=== PATIENT | female | born 1950 | race Caucasian/White ===

== ENCOUNTER 2017-08-24 18:17 | Inpatient (IN) | payer MEDICARE, OTHER ==
[~2017-08-24] VITALS: Ht 162.6 cm; Wt 83.7 kg
[2017-08-24 18:29] VITALS: BP 181/78; PULSE 100; RESP 26; TEMP 99.3; O2SAT 90
--- NOTE | 2017-08-24 19:00 | PD ---
HPI Chief Complaint: General Weakness Time Seen by Provider: 18:59 Travel History International Travel<30 days: No Contact w/Intl Traveler<30days: No Traveled to known affect area: No History of Present Illness HPI 67-year-old female came to the emergency room brought by her two sons with history of altered mental status. I spoke with the son. She has had slowly declining mental condition for past 2 months. She has a home healthcare nurse who comes to see her 3 times a week. One week ago her condition really worsened and last Saturday when the nurse came and saw her she called 911 and patient was taken to [facility]. As per the son she was there up until this morning and was discharged this morning. She had blood test, CAT scan and MRIs done. As per them they were not told the reason of her condition. Her sons are very concerned and frustrated since her confusion continues. After taking her home they realized that she was not fit to stay at home and they needed more answer and hence brought her here. Patient was saturating 90% on room air. She is not on oxygen at home. Patient is unable to give any meaningful history. She looks confused and has been fidgety trying to get out of the bed but unsteady. As per the sons all this has been more recent since past one week. Patient is on methadone for chronic pain for past 10 years as per them. She is also on Xanax, trazodone and gabapentin. No new medications as per them. PFSH Past Medical History Narrative Medical List of her past medical, surgical, social and family history is reviewed from the nursing note Anxiety: Yes High Cholesterol: Yes COPD: Yes Hepatitis: Yes (hep C ) Hypertension: Yes Menopausal: Yes Social History Alcohol Use: No Tobacco Use: Yes (5 ciggaretts a day plus vapor ) Substance Use: No Allergies-Medications (Allergen,Severity, Reaction): Coded Allergies: No Known Allergies (Verified Allergy, Unknown, 06/27/04) Comments No known drug allergies. Reported Meds & Prescriptions Reported Meds & Active Scripts Active Reported Gabapentin 300 Mg Cap 300 Mg PO TID Escitalopram (Escitalopram Oxalate) 20 Mg Tab 20 Mg PO DAILY Lisinopril-Hctz 20-12.5 Mg Tab 1 Tab PO DAILY Lorazepam 1 Mg Tab 1 Mg PO Q8H PRN Trazodone (Trazodone HCl) 150 Mg Tablet 150 Mg PO HS Narrative Medication List of her home medications reviewed from the nursing note. Review of Systems ROS Limitations: Altered Mental Status Except as stated in HPI: all other systems reviewed are Neg Physical Exam Narrative GENERAL: Confused, unsteady gait, tremulous, moderate distress, slurred speech SKIN: Focused skin assessment warm/dry. HEAD: Atraumatic. Normocephalic. EYES: Pupils equal and round. No scleral icterus. No injection or drainage. ENT: No nasal bleeding or discharge. Mucous membranes pink and moist. NECK: Trachea midline. No JVD. CARDIOVASCULAR: Regular rate and rhythm. No murmur appreciated. RESPIRATORY: No accessory muscle use. Clear to auscultation. Breath sounds equal bilaterally. GASTROINTESTINAL: Abdomen soft, non-tender, nondistended. Hepatic and splenic margins not palpable. MUSCULOSKELETAL: No obvious deformities. No clubbing. No cyanosis. No edema. NEUROLOGICAL: GCS of 14. No obvious cranial nerve deficits. Unsteady gait and tremulous. Slurred speech. PSYCHIATRIC: Appropriate mood and affect; insight and judgment normal. Data Data Last Documented VS Vital Signs Date Time Temp Pulse Resp B/P (MAP) Pulse Ox O2 Delivery O2 Flow Rate FiO2 08/24/17 20:36 79 16 117/66 (83) 98 Nasal Cannula 2.00 08/24/17 18:29 99.3 Orders Orders Electrocardiogram (08/24/17 19:05) Ammonia (08/24/17 19:05) Complete Blood Count With Diff (08/24/17 19:05) Comprehensive Metabolic Panel (08/24/17 19:05) Creatine Kinase (Cpk) (08/24/17 19:05) Prothrombin Time / Inr (Pt) (08/24/17 19:05) Troponin I (08/24/17 19:05) Thyroid Stimulating Hormone (08/24/17 19:05) Urinalysis - C+S If Indicated (08/24/17 19:05) Lactic Acid Sepsis Protocol (08/24/17 19:05) Blood Culture (08/24/17 19:05) Chest, Single Ap (08/24/17 19:05) Ct Brain W/O Iv Contrast(Rout) (08/24/17 19:05) Blood Glucose (08/24/17 19:05) Ecg Monitoring (08/24/17 19:05) Iv Access Insert/Monitor (08/24/17 19:05) Oximetry (08/24/17 19:05) Sodium Chloride 0.9% Flush (Ns Flush) (08/24/17 19:15) Sodium Chlor 0.9% 1000 Ml Inj (Ns 1000 M (08/24/17 19:05) Drug Screen, Random Urine (08/24/17 19:05) Alcohol (Ethanol) (08/24/17 19:05) Tylenol (Acetaminophen) (08/24/17 19:05) Salicylates (Aspirin) (08/24/17 19:05) ^ Straight Catheter (08/24/17 19:45) Sodium Chlor 0.9% 1000 Ml Inj (Ns 1000 M (08/24/17 20:00) Piperacil-Tazo 4.5 Gm Premix (Zosyn 4.5 (08/24/17 20:00) Vancomycin Inj (Vancomycin Inj) (08/24/17 20:00) CKMB (08/24/17 19:15) CKMB% (08/24/17 19:15) Admit Order (Ed Use Only) (08/24/17 20:34) Labs Laboratory Tests Test 08/24/17 19:15 White Blood Count 20.1 TH/MM3 Red Blood Count 4.59 MIL/MM3 Hemoglobin 13.1 GM/DL Hematocrit 39.0 % Mean Corpuscular Volume 84.9 FL Mean Corpuscular Hemoglobin 28.6 PG Mean Corpuscular Hemoglobin Concent 33.6 % Red Cell Distribution Width 13.4 % Platelet Count 313 TH/MM3 Mean Platelet Volume 8.4 FL Neutrophils (%) (Auto) 73.6 % Lymphocytes (%) (Auto) 18.8 % Monocytes (%) (Auto) 7.2 % Eosinophils (%) (Auto) 0.2 % Basophils (%) (Auto) 0.2 % Neutrophils # (Auto) 14.8 TH/MM3 Lymphocytes # (Auto) 3.8 TH/MM3 Monocytes # (Auto) 1.5 TH/MM3 Eosinophils # (Auto) 0.0 TH/MM3 Basophils # (Auto) 0.0 TH/MM3 CBC Comment DIFF FINAL Differential Comment Prothrombin Time 10.6 SEC Prothromb Time International Ratio 1.0 RATIO Urine Color LIGHT-YELLOW Urine Turbidity CLEAR Urine pH 5.5 Urine Specific [place] 1.008 Urine Protein NEG mg/dL Urine Glucose (UA) NEG mg/dL Urine Ketones NEG mg/dL Urine Occult Blood NEG Urine Nitrite NEG Urine Bilirubin NEG Urine Urobilinogen LESS THAN 2.0 MG/DL Urine Leukocyte Esterase TRACE Urine RBC LESS THAN 1 /hpf Urine WBC 1 /hpf Urine Squamous Epithelial Cells 1 /hpf Urine Mucus FEW /lpf Microscopic Urinalysis Comment CATH-CULT NOT IND Blood Urea Nitrogen 24 MG/DL Creatinine 1.38 MG/DL Random Glucose 81 MG/DL Total Protein 7.4 GM/DL Albumin 4.0 GM/DL Calcium Level 9.4 MG/DL Alkaline Phosphatase 63 U/L Aspartate Amino Transf (AST/SGOT) 65 U/L Alanine Aminotransferase (ALT/SGPT) 35 U/L Total Bilirubin 0.5 MG/DL Sodium Level 129 MEQ/L Potassium Level 3.9 MEQ/L Chloride Level 93 MEQ/L Carbon Dioxide Level 25.4 MEQ/L Anion Gap 11 MEQ/L Estimat Glomerular Filtration Rate 38 ML/MIN Lactic Acid Level 3.1 mmol/L Ammonia 15 MCMOL/L Total Creatine Kinase 1010 U/L Creatine Kinase MB 11.7 NG/ML Creatine Kinase MB % 1.2 % Troponin I LESS THAN 0.02 NG/ML Thyroid Stimulating Hormone 3rd Gen 1.240 uIU/ML Salicylates Level 3.0 MG/DL Urine Opiates Screen NEG Acetaminophen Level LESS THAN 2.0 MCG/ML Urine Barbiturates Screen NEG Urine Amphetamines Screen NEG Urine Benzodiazepines Screen NEG Urine Cocaine Screen NEG Urine Cannabinoids Screen NEG Ethyl Alcohol Level LESS THAN 3 MG/DL MDM Medical Decision Making Medical Screen Exam Complete: Yes Emergency Medical Condition: Yes Medical Record Reviewed: Yes Interpretation(s) Twelve-lead EKG was reviewed by me. Normal sinus rhythm, normal axis, nonspecific ST-T wave changes. Heart rate of 83 bpm. Differential Diagnosis Medication induced encephalopathy, sepsis, UTI, pneumonia, electrolyte abnormality, dehydration Narrative Course 6 PM based on the blood test results so far patient seems to be septic. She has elevated white blood cell count and lactic acid. I've given her IV fluid bolus and IV antibiotic as per sepsis protocol. Awaiting for her CAT scan of the head to be done and resulted. Patient will require admission. Critical Care Narrative Aggregate critical care time was 30 minutes. Time to perform other separately billable procedures was not included in the critical care time. My time did not include minutes spent treating any other patients simultaneously or on activities that did not directly contribute to the patient's treatment. The services I provided to this patient were to treat and/or prevent clinically significant deterioration that could result in: Sepsis, sepsis protocol, altered mental status I provided critical care services requiring my management, as noted below: Chart data review, documentation time, medication orders and management, vital sign assessments/reviewing monitor data, ordering and reviewing lab tests, ordering and interpreting/reviewing x-rays and diagnostic studies, care of the patient and discussion of the patient with the admitting physicians. Procedures EKG Prior to Arrival: No Sepsis Criteria SIRS Criteria (2 or more): RR > 20 or PaCO2 < 32, WBC > 80429, < 4000 or > 10 % bands Severe Sepsis (+one): Lactate >2 Diagnosis Primary Impression: Sepsis Qualified Codes: A41.9 - Sepsis, unspecified organism Additional Impressions: Hypoxia Altered mental status Qualified Codes: R41.0 - Disorientation, unspecified Rhabdomyolysis Qualified Codes: M62.82 - Rhabdomyolysis Renal insufficiency Admitting Information Admitting Physician Requests: Denisa Solis MD Aug 24, 2017 19:00
[2017-08-24 19:02] VITALS: PULSE 89; RESP 16; O2SAT 99
[2017-08-24] MEDS ORDERED: SODIUM CHLOR 0.9% 1000 ML INJ 1,000 ML IV SCH (19:05)
[2017-08-24] MEDS ORDERED: SODIUM CHLORIDE 0.9% FLUSH 10 ML FLUSH IV FLUSH PRN ×2 (19:15→20:45)
[2017-08-24 19:23] VITALS: RESP 16; O2SAT 100
[2017-08-24] MEDS ORDERED: LORA1TAB12 PO (19:26)
[2017-08-24] MEDS ORDERED: METH10TA PO (19:26)
[2017-08-24] MEDS ORDERED: LISI20TA PO (19:26)
[2017-08-24] MEDS ORDERED: ESCI20TA PO (19:26)
[2017-08-24] MEDS ORDERED: GABA300C5 PO (19:26)
[2017-08-24] MEDS ORDERED: TRAZ1TAB14 PO (19:26)
[2017-08-24 19:35] LABS: AUTOMATED NEUTROPHIL # 14.8 TH/MM3 (1.8-7.7); BASOPHIL % 0.2 % (0.0-2.0); EOSINOPHIL % 0.2 % (0.0-4.0); HEMOGLOBIN 13.1 GM/DL (11.6-15.3); LYMPH % 18.8 % (9.0-44.0); LYMPHOCYTE # 3.8 TH/MM3 (1.0-4.8); MEAN CELL VOLUME 84.9 FL (80.0-100.0); MEAN CORPUSCULAR HEMOGLOBIN 28.6 PG (27.0-34.0); MEAN CORPUSCULAR HGB CONC 33.6 % (32.0-36.0); MEAN PLATELET VOLUME 8.4 FL (7.0-11.0); MONO % 7.2 % (0.0-8.0); MONOCYTE # 1.5 TH/MM3 (0-0.9); NEUT % 73.6 % (16.0-70.0); PLATELET COUNT 313 TH/MM3 (150-450); RED BLOOD COUNT 4.59 MIL/MM3 (4.00-5.30); RED CELL DISTRIBUTION WIDTH 13.4 % (11.6-17.2); WHITE BLOOD COUNT 20.1 TH/MM3 (4.0-11.0)
[2017-08-24 19:46] LABS: BILIRUBIN, URINE NEG (NEG); BLOOD, URINE NEG (NEG); GLUCOSE,URINE NEG (NEG); KETONE, URINE NEG (NEG); MUCUS URINE FEW /lpf (OCC); NITRITE,URINE NEG (NEG); PH, URINE 5.5 (5.0-8.5); SQUAMOUS EPITHELIAL CELL URINE 1 /hpf (0-5); URINE COLOR LIGHT-YELLOW (YELLW/STRAW); URINE LEUKOCYTE ESTERASE TRACE (NEG)
--- NOTE | 2017-08-24 19:46 | RADRPT ---
EXAM DATE/TIME: 08/24/2017 19:23 [facility] COMPARISON: No previous studies available for comparison. INDICATIONS : Shortness of breath. MEDICAL HISTORY : Hypertension. Chronic obstructive pulmonary disease. Hepatitis C. SURGICAL HISTORY : None. ENCOUNTER: Initial ACUITY: 1 day PAIN SCORE: 0/10 LOCATION: Bilateral chest FINDINGS: A single view of the chest demonstrates the lungs to be symmetrically aerated without evidence of mas s, infiltrate or effusion. The cardiomediastinal contours are unremarkable. Metallic posterior hard dhaliwal in the cervical spine. Moderate curvature of the thoracic spine convex towards the left.. CONCLUSION: The lungs are clear. Sreekanth Blanca MD on August 24, 2017 at 19:43 Board Certified Radiologist. This report was verified electronically.
[2017-08-24 19:50] LABS: LACTIC ACID SEPSIS PROTOCOL 3.1 mmol/L (0.4-2.0)
[2017-08-24 19:53] LABS: ALT (GPT) 35 U/L (10-53); AST (GOT) 65 U/L (15-37); BICARBONATE 25.4 MEQ/L (21.0-32.0); BLOOD UREA NITROGEN 24 MG/DL (7-18); CALCIUM 9.4 MG/DL (8.5-10.1); CHLORIDE 93 MEQ/L (98-107); CREATININE 1.38 MG/DL (0.50-1.00); GLOMERULAR FILTRATION RATE 38 ML/MIN (>89); GLUCOSE,RANDOM 81 MG/DL (74-106); SODIUM (NA) 129 MEQ/L (136-145)
[2017-08-24 19:55] LABS: PROTHROMBIN TIME - PATIENT 10.6 SEC (9.8-11.6)
[2017-08-24] MEDS ORDERED: PIPERACIL-TAZO 4.5 GM PREMIX 100 ML IV ONE (20:00)
[2017-08-24] MEDS ORDERED: VANCOMYCIN INJ 1,000 MG in SODIUM CHLOR 0.9% 250 ML INJ 250 ML IV ONE (20:00)
[2017-08-24] MEDS ORDERED: SODIUM CHLOR 0.9% 1000 ML INJ 1,000 ML IV ONE (20:00)
[2017-08-24 20:08] LABS: ACETAMINOPHEN LESS THAN 2.0 MCG/ML (10.0-30.0); ALKALINE PHOSPHATASE 63 U/L (45-117); TOTAL BILIRUBIN ADULT 0.5 MG/DL (0.2-1.0); TOTAL PROTEIN 7.4 GM/DL (6.4-8.2); TROPONIN I LESS THAN 0.02 NG/ML (0.02-0.05)
[2017-08-24 20:36] VITALS: BP 117/66; PULSE 79; RESP 16; O2SAT 98
--- NOTE | 2017-08-24 20:44 | RADRPT ---
EXAM DATE/TIME: 08/24/2017 20:04 [facility] COMPARISON: No previous studies available for comparison. INDICATIONS : Altered mental status. RADIATION DOSE: 37.20 CTDIvol (mGy) MEDICAL HISTORY : Hypertension. Hepatitis C. SURGICAL HISTORY : None. ENCOUNTER: Initial ACUITY: 1 day PAIN SCALE: 0/10 LOCATION: cranial TECHNIQUE: Multiple contiguous axial images were obtained of the head. Using automated exposure control and adj ustment of the mA and/or kV according to patient size, radiation dose was kept as low as reasonably a chievable to obtain optimal diagnostic quality images. DICOM format image data is available electro nically for review and comparison. FINDINGS: The patient's head is canted in the gantry creating asymmetries. CEREBRUM: The ventricles are normal for age. No evidence of midline shift, mass lesion, hemorrhage or acute in farction. No extra-axial fluid collections are seen. POSTERIOR FOSSA: The cerebellum and brainstem are intact. The 4th ventricle is midline. The cerebellopontine angle i s unremarkable. EXTRACRANIAL: The visualized portion of the orbits is intact. SKULL: The calvaria is intact. No evidence of skull fracture. CONCLUSION: No acute findings in the brain. Sreekanth Blanca MD on August 24, 2017 at 20:41 Board Certified Radiologist. This report was verified electronically.
[2017-08-24] MEDS ORDERED: ACETAMINOPHEN/HYDROcodone 325 MG/5 MG TAB PO PRN (20:45)
[2017-08-24] MEDS ORDERED: LACTULOSE SYRUP 20 GM/30 ML CUP PO PRN (20:45)
[2017-08-24] MEDS ORDERED: SENNOSIDES 8.6 MG TAB PO PRN (20:45)
[2017-08-24] MEDS ORDERED: BISACODYL 10 MG SUPP RECTAL PRN (20:45)
[2017-08-24] MEDS ORDERED: ACETAMINOPHEN 325 MG TAB PO PRN (20:45)
[2017-08-24] MEDS ORDERED: MAGNESIUM HYDROXIDE SUSP 30 ML CUP PO PRN (20:45)
[2017-08-24] MEDS ORDERED: Vancomycin Consult Pharmacy 1 EA OTHER SCH (20:45)
[2017-08-24] MEDS ORDERED: VANCOMYCIN 1 GM/200 ML PREMIX IV ONE (21:00)
[2017-08-24] MEDS: DOCUSATE SODIUM 50 MG/SENNA 8.6 MG TAB PO SCH (21:00)
[2017-08-24] MEDS: SODIUM CHLOR 0.9% 1000 ML INJ 1,000 ML IV SCH (21:00)
[2017-08-24 22:00] VITALS: BP 167/77; PULSE 87; RESP 18; TEMP 98.2; O2SAT 97
[2017-08-24] MEDS: ACETAMINOPHEN/HYDROcodone 325 MG/10 MG TAB PO PRN (22:28)
[2017-08-24] MEDS ORDERED: LORazepam 2 MG/ML VIAL IV PUSH ONE (22:30)
--- NOTE | 2017-08-24 23:27 | HHI.HP ---
[facility] Service [facility] Primary Care Physician Cade Bianchi D.O. Admission Diagnosis sepsis, rhabdomyolysis, altered mental status, hypoxia Diagnoses: (1) Altered mental status (2) Sepsis (3) Hypoxia (4) Rhabdomyolysis (5) Renal insufficiency Chief Complaint: Confusion Travel History International Travel<30 Days: No Contact w/Intl Traveler <30 Da: No Traveled to Known Affected Are: No History of Present Illness Ms. Dye is a 67 y/o female with a history of chronic pain on methadone , hypercholesterolemia, hypertension, COPD, and anxiety who was brought to the ED by her sons on 08/24/17 for evaluation of confusion/altered mental status. The patient has had declining mental status for 2 months. The patient was taken to [facility] on 08/21/17 after a home health nurse was visiting her and found her to be very confused. The patient was discharged 08/24/17 in the morning after and she reportedly had CT scans and MRIs done. The patient's sons were not aware of the cause of her condition upon her d/c from the hospital on 08/24/17. They brought her to [facility] for further evaluation. On arrival, her oxygen saturation was 90% on room air though CXR showed clear lungs; UA is not c/w UTI; head CT showed no acute pathology. Sodium is low at 129, BUN elevated at 24, creatinine elevated at 1.38, and eGFR is decreased to 38. CK is 1010, lactic acid is 3.1, AST elevated at 65 with normal ALT and ammonia level - Toxicology is negative. WBC elevated at 20.1 with neutrophilia. Temperature on admission is 99.3; pulse 100; respiratory rate 26 ; and bp 181/78. The patient was admitted for sepsis of undetermined etiology and encephalopathy of uncertain etiology. The patient is seen in her hospital room. She is completely confused. She cannot tell me where she is or why she is here; she is unable to provide any meaningful history and history is obtained from the EMR as a result. She denies pain but throws her legs over the side rails multiple times to try to get out of the bed; she cannot be reoriented and redirected. She is a high fall risk and requires restraints to prevent harm. Review of Systems ROS Limitations: Altered Mental Status (patient unable to provide any meaningful history and doesn't answer ROS ?s) Past Family Social History Past Medical History Chronic pain Hyperlipidemia Hypertension COPD Anxiety Hepatitis C Tobacco Abuse . Past Surgical History Neck and back surgeries . Reported Medications Reported Meds & Active Scripts Active Reported Gabapentin 300 Mg Cap 300 Mg PO TID Escitalopram (Escitalopram Oxalate) 20 Mg Tab 20 Mg PO DAILY Lisinopril-Hctz 20-12.5 Mg Tab 1 Tab PO DAILY Lorazepam 1 Mg Tab 1 Mg PO Q8H PRN Methadone (Methadone HCl) 10 Mg Tab 10 Mg PO DAILY Trazodone (Trazodone HCl) 150 Mg Tablet 150 Mg PO HS . Allergies: Coded Allergies: No Known Allergies (Verified Allergy, Unknown, 06/27/04) Family History unable to obtain . Social History Tobacco: admits to smoking, cannot quantify Alcohol: denies Illicit Drugs: denies . Physical Exam Vital Signs Vital Signs Date Time Temp Pulse Resp B/P (MAP) Pulse Ox O2 Delivery O2 Flow Rate FiO2 08/24/17 21:52 08/24/17 20:36 79 16 117/66 (83) 98 Nasal Cannula 2.00 08/24/17 19:23 16 100 Nasal Cannula 2.00 08/24/17 19:02 89 16 99 Nasal Cannula 2.00 08/24/17 18:29 99.3 100 26 181/78 (112) 90 Physical Exam GENERAL: This is a confused, agitated patient trying to get out of bed despite redirection. SKIN: No rashes. Cool and dry. HEAD: Atraumatic. Normocephalic. EYES: No scleral icterus. No injection or drainage. ENT: Nose without bleeding, purulent drainage. NECK: Trachea midline. No JVD. CARDIOVASCULAR: Regular rate and rhythm without murmurs, gallops, or rubs. RESPIRATORY: Clear to auscultation. Breath sounds equal bilaterally. No wheezes , rales, or rhonchi. GASTROINTESTINAL: Abdomen soft, non-tender, nondistended. No guarding. GENITOURINARY: josé catheter draining clear yellow urine. MUSCULOSKELETAL: Extremities without clubbing, cyanosis, or edema. No calf tenderness. NEUROLOGICAL: Confused; agitated; does not follow commands. . Laboratory Laboratory Tests Test 08/24/17 19:15 White Blood Count 20.1 Red Blood Count 4.59 Hemoglobin 13.1 Hematocrit 39.0 Mean Corpuscular Volume 84.9 Mean Corpuscular Hemoglobin 28.6 Mean Corpuscular Hemoglobin Concent 33.6 Red Cell Distribution Width 13.4 Platelet Count 313 Mean Platelet Volume 8.4 Neutrophils (%) (Auto) 73.6 Lymphocytes (%) (Auto) 18.8 Monocytes (%) (Auto) 7.2 Eosinophils (%) (Auto) 0.2 Basophils (%) (Auto) 0.2 Neutrophils # (Auto) 14.8 Lymphocytes # (Auto) 3.8 Monocytes # (Auto) 1.5 Eosinophils # (Auto) 0.0 Basophils # (Auto) 0.0 CBC Comment DIFF FINAL Differential Comment Prothrombin Time 10.6 Prothromb Time International Ratio 1.0 Urine Color LIGHT-YELLOW Urine Turbidity CLEAR Urine pH 5.5 Urine Specific [place] 1.008 Urine Protein NEG Urine Glucose (UA) NEG Urine Ketones NEG Urine Occult Blood NEG Urine Nitrite NEG Urine Bilirubin NEG Urine Urobilinogen LESS THAN 2.0 Urine Leukocyte Esterase TRACE Urine RBC LESS THAN 1 Urine WBC 1 Urine Squamous Epithelial Cells 1 Urine Mucus FEW Microscopic Urinalysis Comment CATH-CULT NOT IND Blood Urea Nitrogen 24 Creatinine 1.38 Random Glucose 81 Total Protein 7.4 Albumin 4.0 Calcium Level 9.4 Alkaline Phosphatase 63 Aspartate Amino Transf (AST/SGOT) 65 Alanine Aminotransferase (ALT/SGPT) 35 Total Bilirubin 0.5 Sodium Level 129 Potassium Level 3.9 Chloride Level 93 Carbon Dioxide Level 25.4 Anion Gap 11 Estimat Glomerular Filtration Rate 38 Lactic Acid Level 3.1 Ammonia 15 Total Creatine Kinase 1010 Creatine Kinase MB 11.7 Creatine Kinase MB % 1.2 Troponin I LESS THAN 0.02 Thyroid Stimulating Hormone 3rd Gen 1.240 Salicylates Level 3.0 Urine Opiates Screen NEG Acetaminophen Level LESS THAN 2.0 Urine Barbiturates Screen NEG Urine Amphetamines Screen NEG Urine Benzodiazepines Screen NEG Urine Cocaine Screen NEG Urine Cannabinoids Screen NEG Ethyl Alcohol Level LESS THAN 3 Date/Time Source Procedure Growth Status 08/24/17 19:15 Blood Peripheral Aerobic Blood Culture Pending Received 08/24/17 19:15 Blood Peripheral Anaerobic Blood Culture Pending Received Result Diagram: 08/24/17191408/24/171914 Imaging Last Impressions Head CT 08/24/171904 Signed Impressions: Service Date/Time: Thursday, August 24, 2017 20:04 - CONCLUSION: No acute findings in the brain. Sreekanth Blanca MD Chest X-Ray 08/24/171904 Signed Impressions: Service Date/Time: Thursday, August 24, 2017 19:23 - CONCLUSION: The lungs are clear. Sreekanth Blanca MD Caprini VTE Risk Assessment Caprini VTE Risk Assessment: Mod/High Risk (score >= 2) Caprini Risk Assessment Model Point Value = 1 Point Value = 2 Point Value = 3 Point Value = 5 Age 41-60 Minor surgery BMI > 25 kg/m2 Swollen legs Varicose veins or History of unexplained or recurrent spontaneous Oral contraceptives or hormone replacement Sepsis (< 1 month) Serious lung disease, including pneumonia (< 1 month) Abnormal pulmonary function Acute myocardial infarction Congestive heart failure (< 1 month) History of inflammatory bowel disease Medical patient at bed rest Age 61-74 Arthroscopic surgery Major open surgery (> 45 min) Laparoscopic surgery (> 45 min) Malignancy Confined to bed (> 72 hours) Immobilizing plaster cast Central venous access Age >= 75 History of VTE Family history of VTE Factor V Leiden Prothrombin [id number] Lupus anticoagulant Anticardiolipin antibodies Elevated serum homocysteine Heparin-induced thrombocytopenia Other congenital or acquired thrombophilia Stroke (< 1 month) Elective arthroplasty Hip, pelvis, or leg fracture Acute spinal cord injury (< 1 month) Prophylaxis Regimen Total Risk Factor Score Risk Level Prophylaxis Regimen 0-1 Low Early ambulation 2 Moderate Order ONE of the following: *Sequential Compression Device (SCD) *Heparin 5000 units SQ BID 3-4 Higher Order ONE of the following medications: *Heparin 5000 units SQ TID *Enoxaparin/Lovenox 40 mg SQ daily (WT < 150 kg, CrCl > 30 mL/min) *Enoxaparin/Lovenox 30 mg SQ daily (WT < 150 kg, CrCl > 10-29 mL/min) *Enoxaparin/Lovenox 30 mg SQ BID (WT < 150 kg, CrCl > 30 mL/min) AND/OR *Sequential Compression Device (SCD) 5 or more Highest Order ONE of the following medications: *Heparin 5000 units SQ TID (Preferred with Epidurals) *Enoxaparin/Lovenox 40 mg SQ daily (WT < 150 kg, CrCl > 30 mL/min) *Enoxaparin/Lovenox 30 mg SQ daily (WT < 150 kg, CrCl > 10-29 mL/min) *Enoxaparin/Lovenox 30 mg SQ BID (WT < 150 kg, CrCl > 30 mL/min) AND *Sequential Compression Device (SCD) Assessment and Plan Problem List: (1) Altered mental status ICD Code: R41.82 - Altered mental status, unspecified Status: Acute (2) Sepsis ICD Code: A41.9 - Sepsis, unspecified organism Status: Acute (3) Hypoxia ICD Code: R09.02 - Hypoxemia Status: Acute (4) Rhabdomyolysis ICD Code: M62.82 - Rhabdomyolysis Status: Acute (5) Renal insufficiency ICD Code: N28.9 - Disorder of kidney and ureter, unspecified Status: Acute Assessment and Plan Ms. Dye is a 67 y/o female with a history of chronic pain on methadone , hypercholesterolemia, hypertension, COPD, and anxiety who was brought to the ED by her sons on 08/24/17 for evaluation of confusion/altered mental status. The patient has had declining mental status for 2 months. The patient was taken to [facility] on 08/21/17 after a home health nurse was visiting her and found her to be very confused. The patient was discharged 08/24/17 in the morning after and she reportedly had CT scans and MRIs done. The patient's sons were not aware of the cause of her condition upon her d/c from the hospital on 08/24/17. They brought her to [facility] for further evaluation. Altered mental status - head CT showed no acute pathology; ammonia level normal; toxicology negative - High fall risk interventions - Restraints, soft wrist/ankle to prevent injury - Obtain records from [facility] - discussed with nursing staff - Patient's sons indicated that she takes methadone and Xanax (lorazepam listed on med rec) to ER doctor but toxicology is negative - will hold methadone and Lorazepam - I have some concern regarding polypharmacy Sepsis - Lactic Acid 3.1, tachycardia - 100 bpm on admission, hypoxia on admission 90% oxygen saturation - source unknown - Lactic acid sepsis protocol ordered - WBC elevated at 20.1 with neutrophilia - repeat CBC in a.m. and follow results - CXR showed clear lungs; UA is not c/w UTI - await blood culture results - Antibiotics: Vancomycin/Cefepime IV Hypoxia - supplemental oxygen titrated to maintain oxygen saturation > 92% - Duonebs q4h PRN sob/wheezing Rhabdomyolysis, mild - CK 1010 - NS at 100 cc/hr - repeat CK and follow results - increase IVF hydration if needed Renal insufficiency - no prior labs for comparison - BUN elevated at 24, creatinine elevated at 1.38, and eGFR is decreased to 38 - IVF hydration as above - recheck with BMP in a.m. and follow results - avoid nephrotoxins Hyponatremia - Na 129 on admission - NS IVF hydration as above - recheck level in a.m. and follow results Hypertension - hold home lisinopril/hctz due to renal insufficiency - Clonidine 0.1 mg p.o. q6h PRN SBP > 160 or DBP > 100 - monitor bp trends and adjust treatment accordingly DVT prophylaxis - Heparin 5000 units subq q8h Discussed Condition With RN and Dr. Lacey . Physician Certification 2 Midnight Certification Type: Admission for Inpatient Services Order for Inpatient Services The services are ordered in accordance with Medicare regulations or non- Medicare payer requirements, as applicable. In the case of services not specified as inpatient-only, they are appropriately provided as inpatient services in accordance with the 2-midnight benchmark. Estimated LOS (days): 4 days is the estimated time the patient will need to remain in the hospital, assuming treatment plan goals are met and no additional complications. Post-Hospital Plan: Not yet determined Problem Qualifiers (1) Altered mental status: Qualified Codes: R41.0 - Disorientation, unspecified (2) Sepsis: Qualified Codes: A41.9 - Sepsis, unspecified organism (3) Rhabdomyolysis: Qualified Codes: M62.82 - Rhabdomyolysis Anh Escobedo Aug 24, 2017 23:27
[2017-08-24] MEDS ORDERED: VANCOMYCIN 1,000 MG/NS 250 ML IV ONE ×2 (23:30)
[2017-08-24] MEDS: SODIUM CHLORIDE 0.9% FLUSH 10 ML FLUSH IV FLUSH SCH (23:51)
[2017-08-25] VITALS (8 sets, daily range): BP systolic 99–165; BP diastolic 63–99; PULSE 62–80; RESP 17–20; TEMP 97.2–98.7; O2SAT 95–98
--- NOTE | 2017-08-25 00:39 | EKG ---
Date Performed: 08/24/2017 Time Performed: 19:35:58 PTAGE: 67 years EKG: Sinus rhythm NORMAL ECG NO PREVIOUS TRACING DOCTOR: Cruz Hollingsworth Interpretating Date/Time 08/25/2017 00:37:07
[2017-08-25] MEDS ORDERED: RESP: ALBUTEROL 2.5 MG/IPRATROPIUM 0.5 MG NEB (PRN) NEB (01:00)
[2017-08-25] MEDS ORDERED: LORazepam 0.5 MG TAB PO PRN (01:00)
[2017-08-25] MEDS ORDERED: cloNIDine HCL 0.1 MG TAB PO PRN (01:30)
[2017-08-25 02:26] LABS: TROPONIN I LESS THAN 0.02 NG/ML (0.02-0.05)
[2017-08-25] MEDS: HEPARIN SODIUM - SQ 10,000 UNITS/ML VIAL SQ SCH ×3 (06:31→21:08)
[2017-08-25] MEDS: SODIUM CHLOR 0.9% 1000 ML INJ 1,000 ML IV SCH ×2 (07:00→14:27)
[2017-08-25] MEDS: SODIUM CHLORIDE 0.9% FLUSH 10 ML FLUSH IV FLUSH SCH ×2 (08:42→21:14)
[2017-08-25] MEDS: DOCUSATE SODIUM 50 MG/SENNA 8.6 MG TAB PO SCH ×2 (09:00→21:00)
[2017-08-25] MEDS ORDERED: CEFEPIME INJ 1,000 MG in SODIUM CHLORIDE 0.9% INJ 100 ML IV SCH (09:00)
[2017-08-25] MEDS ORDERED: METHADONE HCL 10 MG TAB PO SCH ×2 (09:00→21:00)
[2017-08-25] MEDS: GABAPENTIN 300 MG CAP PO SCH ×3 (09:15→17:21)
[2017-08-25] MEDS: ESCITALOPRAM OXALATE 20 MG TAB PO SCH (09:15)
[2017-08-25 09:57] LABS: AUTOMATED NEUTROPHIL # 9.7 TH/MM3 (1.8-7.7); BASOPHIL % 0.2 % (0.0-2.0); EOSINOPHIL # 0.1 TH/MM3 (0-0.4); EOSINOPHIL % 0.5 % (0.0-4.0); HEMATOCRIT 35.5 % (35.0-46.0); HEMOGLOBIN 11.9 GM/DL (11.6-15.3); LYMPH % 10.6 % (9.0-44.0); LYMPHOCYTE # 1.3 TH/MM3 (1.0-4.8); MEAN CORPUSCULAR HEMOGLOBIN 28.9 PG (27.0-34.0); MEAN CORPUSCULAR HGB CONC 33.6 % (32.0-36.0); MEAN PLATELET VOLUME 8.1 FL (7.0-11.0); MONO % 7.9 % (0.0-8.0); NEUT % 80.8 % (16.0-70.0); PLATELET COUNT 235 TH/MM3 (150-450); RED BLOOD COUNT 4.13 MIL/MM3 (4.00-5.30); RED CELL DISTRIBUTION WIDTH 13.6 % (11.6-17.2)
[2017-08-25 10:16] LABS: ALBUMIN 3.2 GM/DL (3.4-5.0); ALT (GPT) 29 U/L (10-53); AST (GOT) 55 U/L (15-37); BLOOD UREA NITROGEN 15 MG/DL (7-18); CALCIUM 8.2 MG/DL (8.5-10.1); CHLORIDE 107 MEQ/L (98-107); CREATININE 0.85 MG/DL (0.50-1.00); GLOMERULAR FILTRATION RATE 67 ML/MIN (>89); GLUCOSE,RANDOM 79 MG/DL (74-106); SODIUM (NA) 140 MEQ/L (136-145)
[2017-08-25 10:20] LABS: ALKALINE PHOSPHATASE 52 U/L (45-117); TOTAL BILIRUBIN ADULT 0.5 MG/DL (0.2-1.0); TROPONIN I LESS THAN 0.02 NG/ML (0.02-0.05)
[2017-08-25] MEDS: ACETAMINOPHEN/HYDROcodone 325 MG/10 MG TAB PO PRN ×2 (11:49→17:21)
--- NOTE | 2017-08-25 16:33 | HHI.PR ---
Subjective Remarks c/o generalized pain. Requesting to have her methadone restarted. Denies cp/sob. Afebrile Objective Vitals Vital Signs Date Time Temp Pulse Resp B/P (MAP) Pulse Ox O2 Delivery O2 Flow Rate FiO2 08/25/17 16:19 63 08/25/17 12:00 80 08/25/17 08:00 98.7 80 20 134/63 (86) 97 08/25/17 08:00 62 08/25/17 07:18 Nasal Cannula 2.00 08/25/17 04:00 98.2 77 17 141/65 (90) 97 08/25/17 00:00 76 08/24/17 22:00 98.2 87 18 167/77 (107) 97 08/24/17 22:00 Nasal Cannula 2.00 08/24/17 21:52 08/24/17 20:36 79 16 117/66 (83) 98 Nasal Cannula 2.00 08/24/17 19:23 16 100 Nasal Cannula 2.00 08/24/17 19:02 89 16 99 Nasal Cannula 2.00 08/24/17 18:29 99.3 100 26 181/78 (112) 90 I/O 08/24/17 08/24/17 08/24/17 08/25/17 08/25/17 08/25/17 06:59 14:59 22:59 06:59 14:59 22:59 Intake Total 2250 ml 878 ml 100 ml Output Total 1600 ml Balance 2250 ml -722 ml 100 ml Intake IV Total 2250 ml 878 ml 100 ml Output Urine Total 1600 ml # Bowel Movements 0 Result Diagram: 08/25/1793008/25/17930 Imaging Last Impressions Head CT 08/24/171904 Signed Impressions: Service Date/Time: Thursday, August 24, 2017 20:04 - CONCLUSION: No acute findings in the brain. Sreekanth Blanca MD Chest X-Ray 08/24/171904 Signed Impressions: Service Date/Time: Thursday, August 24, 2017 19:23 - CONCLUSION: The lungs are clear. Sreekanth Blanca MD Objective Remarks \GENERAL: This is a confused, agitated patient trying to get out of bed despite redirection. SKIN: No rashes. Cool and dry. HEAD: Atraumatic. Normocephalic. EYES: No scleral icterus. No injection or drainage. ENT: Nose without bleeding, purulent drainage. NECK: Trachea midline. No JVD. CARDIOVASCULAR: Regular rate and rhythm without murmurs, gallops, or rubs. RESPIRATORY: Clear to auscultation. Breath sounds equal bilaterally. No wheezes , rales, or rhonchi. GASTROINTESTINAL: Abdomen soft, non-tender, nondistended. No guarding. GENITOURINARY: josé catheter draining clear yellow urine. MUSCULOSKELETAL: Extremities without clubbing, cyanosis, or edema. No calf tenderness. NEUROLOGICAL: awake and alert, anxious; follows commands. Medications and IVs Current Medications Medications (Trade) Dose Ordered Sig/Josafat Route Start Time Stop Time Status Last Admin Pharmacy Profile Note 0 ml @ 0 mls/hr UNSCH OTHER 08/24/17 20:45 Sodium Chloride 1,000 ml @ 100 mls/hr Q10H IV 08/24/17 21:00 08/25/17 14:27 (NS Flush) 2 ml UNSCH PRN IV FLUSH 08/24/17 20:45 (NS Flush) 2 ml BID IV FLUSH 08/24/17 21:00 08/25/17 21:14 (Zofran Inj) 4 mg Q6H PRN IVP 08/24/17 20:45 (Tylenol) 650 mg Q6H PRN PO 08/24/17 20:45 ([place] 5-325 Mg) 1 tab Q4H PRN PO 08/24/17 20:45 ([place] 10-325 Mg) 1 tab Q4H PRN PO 08/24/17 20:45 08/25/17 17:21 (Elisa-Colace) 1 tab BID PO 08/24/17 21:00 (Milk Of Magnesia Liq) 30 ml Q12H PRN PO 08/24/17 20:45 (Senokot) 17.2 mg Q12H PRN PO 08/24/17 20:45 (Dulcolax Supp) 10 mg DAILY PRN RECTAL 08/24/17 20:45 (Lactulose Liq) 30 ml DAILY PRN PO 08/24/17 20:45 (Lexapro) 20 mg DAILY PO 08/25/17 09:00 08/25/17 09:15 (Neurontin) 300 mg TID PO 08/25/17 09:00 08/25/17 17:21 (Desyrel) 150 mg HS PO 08/25/17 21:00 08/25/17 21:09 (Duoneb Neb) 1 ampule Q4HR NEB PRN NEB 08/25/17 01:00 (Heparin Inj) 5,000 units Q8HR SQ 08/25/17 06:00 08/25/17 21:08 (Catapres) 0.1 mg Q6H PRN PO 08/25/17 01:30 Cefepime HCl 2000 mg/Sodium Chloride 100 ml @ 200 mls/hr Q12H IV 08/25/17 21:00 08/25/17 21:14 (Dolophine) 35 mg BID PO 08/25/17 21:00 08/25/17 21:10 (Pill Splitter) 1 ea UNSCH PRN OTHER 08/25/17 18:30 A/P Problem List: (1) Altered mental status ICD Code: R41.82 - Altered mental status, unspecified Status: Acute (2) Sepsis ICD Code: A41.9 - Sepsis, unspecified organism Status: Acute (3) Hypoxia ICD Code: R09.02 - Hypoxemia Status: Acute (4) Rhabdomyolysis ICD Code: M62.82 - Rhabdomyolysis Status: Acute (5) Renal insufficiency ICD Code: N28.9 - Disorder of kidney and ureter, unspecified Status: Acute Assessment and Plan Ms. Dye is a 67 y/o female with a history of chronic pain on methadone , hypercholesterolemia, hypertension, COPD, and anxiety who was brought to the ED by her sons on 08/24/17 for evaluation of confusion/altered mental status. The patient has had declining mental status for 2 months. The patient was taken to [facility] on 08/21/17 after a home health nurse was visiting her and found her to be very confused. The patient was discharged 08/24/17 in the morning after and she reportedly had CT scans and MRIs done. The patient's sons were not aware of the cause of her condition upon her d/c from the hospital on 08/24/17. They brought her to [facility] for further evaluation. Encephalopathy - head CT showed no acute pathology; ammonia level normal; toxicology negative - High fall risk interventions - off restraints - Obtain records from [facility] - discussed with nursing staff - Patient's sons indicated that she takes methadone and Xanax (lorazepam listed on med rec) to ER doctor but toxicology is negative - will hold methadone and Lorazepam - I have some concern regarding polypharmacy - 08/25 suspect metabolic encephalopathy secondary to sepsis. Encephalopathy has resolved, patient is awake and alert, very anxious. I will resume methadone and continue to hold Xanax. Sepsis - Lactic Acid 3.1, tachycardia - 100 bpm on admission, hypoxia on admission 90% oxygen saturation - source unknown - Lactic acid sepsis protocol ordered - WBC elevated at 20.1 with neutrophilia - repeat CBC in a.m. and follow results - CXR showed clear lungs; UA is not c/w UTI - await blood culture results - Antibiotics: Vancomycin/Cefepime IV - 08/25 sepsis clinically improving with the result elevated lactic acid, improving leukocytosis down to 12 K and improving oxygen saturation. Hypoxia - supplemental oxygen titrated to maintain oxygen saturation > 92% - Duonebs q4h PRN sob/wheezing Rhabdomyolysis, mild - CK 1010 - NS at 100 cc/hr - repeat CK and follow results - increase IVF hydration if needed - 08/25 CK trending down, continue with fluids. Continue to monitor CK. Acute kidney injury- no prior labs for comparison - BUN elevated at 24, creatinine elevated at 1.38, and eGFR is decreased to 38 - 08/25 Resolved after IV fluid administration. Suspect SUZY like secondary to prerenal azotemia. - Continue to monitor BMP Hyponatremia - Na 129 on admission - NS IVF hydration as above - 08/25 suspect hypovolemic hyponatremia. Resolved after IV fluid administration. Hypertension - hold home lisinopril/hctz due to renal insufficiency - Clonidine 0.1 mg p.o. q6h PRN SBP > 160 or DBP > 100 - monitor bp trends and adjust treatment accordingly - 08/25 BNP more stable. Continue to monitor. DVT prophylaxis - Heparin 5000 units subq q8h Discharge Planning Continue to monitor in the medical floor. Problem Qualifiers (1) Altered mental status: Qualified Codes: R41.0 - Disorientation, unspecified (2) Sepsis: Qualified Codes: A41.9 - Sepsis, unspecified organism (3) Rhabdomyolysis: Qualified Codes: M62.82 - Rhabdomyolysis Rodríguez Solano MD Aug 25, 2017 16:33
[2017-08-25] MEDS ORDERED: PILL SPLITTER OTHER PRN (18:30)
[2017-08-25] MEDS ORDERED: METHADONE HCL 10 MG/10 ML ORAL SOLUTION PO SCH (21:00)
[2017-08-25] MEDS: traZODone HCL 50 MG TAB PO SCH (21:09)
[2017-08-25] MEDS: METHADONE HCL 10 MG TAB PO SCH (21:10)
[2017-08-25] MEDS: CEFEPIME 2000 MG/NS 100 ML IV SCH ×2 (21:14)
[2017-08-26] VITALS (10 sets, daily range): BP systolic 131–146; BP diastolic 63–80; PULSE 56–86; RESP 18–20; TEMP 97.3–98.6; O2SAT 93–98
[2017-08-26] MEDS: SODIUM CHLOR 0.9% 1000 ML INJ 1,000 ML IV SCH ×4 (00:42→23:00)
[2017-08-26] MEDS: HEPARIN SODIUM - SQ 10,000 UNITS/ML VIAL SQ SCH ×3 (05:29→21:22)
[2017-08-26] MEDS: DOCUSATE SODIUM 50 MG/SENNA 8.6 MG TAB PO SCH ×2 (08:33→21:00)
[2017-08-26] MEDS: GABAPENTIN 300 MG CAP PO SCH ×3 (08:34→18:13)
[2017-08-26] MEDS: ESCITALOPRAM OXALATE 20 MG TAB PO SCH (08:37)
[2017-08-26] MEDS: CEFEPIME 2000 MG/NS 100 ML IV SCH ×4 (08:37→21:26)
[2017-08-26] MEDS: SODIUM CHLORIDE 0.9% FLUSH 10 ML FLUSH IV FLUSH SCH ×2 (08:37→21:26)
[2017-08-26] MEDS: METHADONE HCL 10 MG TAB PO SCH ×2 (08:38→21:25)
[2017-08-26] MEDS: VANCOMYCIN INJ 1,250 MG in SODIUM CHLOR 0.9% 250 ML INJ 250 ML IV SCH (13:26)
[2017-08-26] MEDS: LORazepam 1 MG TAB PO PRN ×2 (13:26→21:23)
[2017-08-26] MEDS: ONDANSETRON HCL 4 MG/2 ML VIAL IVP PRN (13:28)
--- NOTE | 2017-08-26 13:28 | HHI.PR ---
Subjective Remarks Patient is still very anxious. Awake Denies cp/sob. states feels sick - like if she is withdrawing. Objective Vitals Vital Signs Date Time Temp Pulse Resp B/P (MAP) Pulse Ox O2 Delivery O2 Flow Rate FiO2 08/26/17 04:00 58 08/26/17 04:00 97.7 77 18 131/69 (89) 97 08/26/17 00:00 97.3 58 20 131/69 (89) 98 08/26/17 00:00 59 08/26/17 00:00 Nasal Cannula 2.00 08/25/17 22:10 75 135/79 (97) 08/25/17 21:00 Nasal Cannula 2.00 08/25/17 20:00 71 08/25/17 20:00 97.2 76 18 165/99 (121) 98 08/25/17 16:19 63 08/25/17 16:00 97.2 73 20 137/64 (88) 95 I/O 08/25/17 08/25/17 08/25/17 08/26/17 08/26/17 08/26/17 07:00 15:00 23:00 07:00 15:00 23:00 Intake Total 878 ml 100 ml 460 ml 2047 ml Output Total 1600 ml 1950 ml Balance -722 ml 100 ml -1490 ml 2047 ml Intake Oral 360 ml IV Total 878 ml 100 ml 100 ml 2047 ml Output Urine Total 1600 ml 1950 ml # Bowel Movements 0 2 Result Diagram: 08/25/17 0931 08/25/17 0931 Imaging Last Impressions Head CT 08/24/171904 Signed Impressions: Service Date/Time: Thursday, August 24, 2017 20:04 - CONCLUSION: No acute findings in the brain. Sreekanth Blanca MD Chest X-Ray 08/24/171904 Signed Impressions: Service Date/Time: Thursday, August 24, 2017 19:23 - CONCLUSION: The lungs are clear. Sreekanth Blanca MD Objective Remarks GENERAL: Awake and alert, nad, anxious. SKIN: No rashes. Cool and dry. HEAD: Atraumatic. Normocephalic. EYES: No scleral icterus. No injection or drainage. ENT: Nose without bleeding, purulent drainage. NECK: Trachea midline. No JVD. CARDIOVASCULAR: Regular rate and rhythm without murmurs, gallops, or rubs. RESPIRATORY: Clear to auscultation. Breath sounds equal bilaterally. No wheezes , rales, or rhonchi. GASTROINTESTINAL: Abdomen soft, non-tender, nondistended. No guarding. GENITOURINARY: josé catheter draining clear yellow urine. MUSCULOSKELETAL: Extremities without clubbing, cyanosis, or edema. No calf tenderness. NEUROLOGICAL: awake and alert, anxious; follows commands. Medications and IVs Current Medications Medications (Trade) Dose Ordered Sig/Josafat Route Start Time Stop Time Status Last Admin Pharmacy Profile Note 0 ml @ 0 mls/hr UNSCH OTHER 08/24/17 20:45 Sodium Chloride 1,000 ml @ 100 mls/hr Q10H IV 08/24/17 21:00 08/26/17 10:29 (NS Flush) 2 ml UNSCH PRN IV FLUSH 08/24/17 20:45 (NS Flush) 2 ml BID IV FLUSH 08/24/17 21:00 08/26/17 08:37 (Zofran Inj) 4 mg Q6H PRN IVP 08/24/17 20:45 (Tylenol) 650 mg Q6H PRN PO 08/24/17 20:45 ([place] 5-325 Mg) 1 tab Q4H PRN PO 08/24/17 20:45 ([place] 10-325 Mg) 1 tab Q4H PRN PO 08/24/17 20:45 08/25/17 17:21 (Elisa-Colace) 1 tab BID PO 08/24/17 21:00 (Milk Of Magnesia Liq) 30 ml Q12H PRN PO 08/24/17 20:45 (Senokot) 17.2 mg Q12H PRN PO 08/24/17 20:45 (Dulcolax Supp) 10 mg DAILY PRN RECTAL 08/24/17 20:45 (Lactulose Liq) 30 ml DAILY PRN PO 08/24/17 20:45 (Lexapro) 20 mg DAILY PO 08/25/17 09:00 08/26/17 08:37 (Neurontin) 300 mg TID PO 08/25/17 09:00 08/25/17 17:21 (Desyrel) 150 mg HS PO 08/25/17 21:00 08/25/17 21:09 (Duoneb Neb) 1 ampule Q4HR NEB PRN NEB 08/25/17 01:00 (Heparin Inj) 5,000 units Q8HR SQ 08/25/17 06:00 08/26/17 05:29 (Catapres) 0.1 mg Q6H PRN PO 08/25/17 01:30 Cefepime HCl 2000 mg/Sodium Chloride 100 ml @ 200 mls/hr Q12H IV 08/25/17 21:00 08/26/17 08:37 (Dolophine) 35 mg BID PO 08/25/17 21:00 08/26/17 08:38 (Pill Splitter) 1 ea UNSCH PRN OTHER 08/25/17 18:30 Vancomycin HCl 1250 mg/Sodium Chloride 262.5 ml @ 250 mls/hr Q18H IV 08/26/17 12:00 Miscellaneous Information SPECIFIC LAB TO BE DRAWN:VANCO TROUGH DATE TO... ONCE ONCE .XX 08/28/17 17:45 08/28/17 17:46 (Ativan) 1 mg Q12H PRN PO 08/26/17 12:30 A/P Problem List: (1) Sepsis ICD Code: A41.9 - Sepsis, unspecified organism Status: Resolved (2) Hypoxia ICD Code: R09.02 - Hypoxemia Status: Resolved (3) Rhabdomyolysis ICD Code: M62.82 - Rhabdomyolysis Status: Acute (4) Renal insufficiency ICD Code: N28.9 - Disorder of kidney and ureter, unspecified Status: Resolved (5) Encephalopathy ICD Code: G93.40 - Encephalopathy, unspecified Status: Resolved Assessment and Plan Ms. Dye is a 67 y/o female with a history of chronic pain on methadone , hypercholesterolemia, hypertension, COPD, and anxiety who was brought to the ED by her sons on 08/24/17 for evaluation of confusion/altered mental status. The patient has had declining mental status for 2 months. The patient was taken to [facility] on 08/21/17 after a home health nurse was visiting her and found her to be very confused. The patient was discharged 08/24/17 in the morning after and she reportedly had CT scans and MRIs done. The patient's sons were not aware of the cause of her condition upon her d/c from the hospital on 08/24/17. They brought her to [facility] for further evaluation. Encephalopathy - head CT showed no acute pathology; ammonia level normal; toxicology negative - High fall risk interventions - off restraints - Obtain records from [facility] - discussed with nursing staff - Patient's sons indicated that she takes methadone and Xanax (lorazepam listed on med rec) to ER doctor but toxicology is negative - will hold methadone and Lorazepam - I have some concern regarding polypharmacy - 08/25 suspect metabolic encephalopathy secondary to sepsis. Encephalopathy has resolved, patient is awake and alert, very anxious. I will resume methadone and continue to hold Xanax. - 08/26 suspect encephalopathy could also have been induced by combination of sepsis, Methadone and Xanax. Will resume Xanax but decrease the dose to 1 mg po BID. Sepsis - Lactic Acid 3.1, tachycardia - 100 bpm on admission, hypoxia on admission 90% oxygen saturation - source unknown - Lactic acid sepsis protocol ordered - WBC elevated at 20.1 with neutrophilia - repeat CBC in a.m. and follow results - CXR showed clear lungs; UA is not c/w UTI - await blood culture results - Antibiotics: Vancomycin/Cefepime IV - 08/26 sepsis clinically improving with the result elevated lactic acid, improving leukocytosis down to 12 K and improving oxygen saturation. Hypoxia - supplemental oxygen titrated to maintain oxygen saturation > 92% - Duonebs q4h PRN sob/wheezing - 08/26 Resolved. Rhabdomyolysis, mild - CK 1010 - NS at 100 cc/hr - repeat CK and follow results - increase IVF hydration if needed - 08/26 CK trending down, continue with fluids. Continue to monitor CK. Acute kidney injury- no prior labs for comparison - BUN elevated at 24, creatinine elevated at 1.38, and eGFR is decreased to 38 - 08/25 Resolved after IV fluid administration. Suspect SUZY like secondary to prerenal azotemia. - Continue to monitor BMP Hyponatremia - Na 129 on admission - NS IVF hydration as above - 08/26 suspect hypovolemic hyponatremia. Resolved after IV fluid administration. Hypertension - hold home lisinopril/hctz due to renal insufficiency - Clonidine 0.1 mg p.o. q6h PRN SBP > 160 or DBP > 100 - monitor bp trends and adjust treatment accordingly - 08/25 BNP more stable. Continue to monitor. DVT prophylaxis - Heparin 5000 units subq q8h Discharge Planning Continue to monitor in the medical floor. Problem Qualifiers (1) Sepsis: Qualified Codes: A41.9 - Sepsis, unspecified organism (2) Rhabdomyolysis: Qualified Codes: M62.82 - Rhabdomyolysis Rodríguez Solano MD Aug 26, 2017 13:28
[2017-08-26] MEDS: traZODone HCL 50 MG TAB PO SCH (21:23)
[2017-08-27 00:08] VITALS: PULSE 47
[2017-08-27 04:04] VITALS: PULSE 49
[2017-08-27 04:25] VITALS: BP 136/69; PULSE 80; RESP 18; TEMP 97.5; O2SAT 97
[2017-08-27] MEDS: VANCOMYCIN INJ 1,250 MG in SODIUM CHLOR 0.9% 250 ML INJ 250 ML IV SCH (05:30)
[2017-08-27] MEDS: HEPARIN SODIUM - SQ 10,000 UNITS/ML VIAL SQ SCH ×2 (05:30→12:37)
[2017-08-27 07:48] LABS: CREATININE 0.93 MG/DL (0.50-1.00)
[2017-08-27 08:00] VITALS: BP 173/77; PULSE 84; RESP 18; TEMP 98.6; O2SAT 95
[2017-08-27] MEDS: METHADONE HCL 10 MG TAB PO SCH (08:18)
[2017-08-27] MEDS: ESCITALOPRAM OXALATE 20 MG TAB PO SCH (08:18)
[2017-08-27] MEDS: SODIUM CHLOR 0.9% 1000 ML INJ 1,000 ML IV SCH (08:18)
[2017-08-27] MEDS: GABAPENTIN 300 MG CAP PO SCH ×2 (08:18→12:36)
[2017-08-27] MEDS: SODIUM CHLORIDE 0.9% FLUSH 10 ML FLUSH IV FLUSH SCH (08:18)
[2017-08-27] MEDS: DOCUSATE SODIUM 50 MG/SENNA 8.6 MG TAB PO SCH (09:00)
[2017-08-27] MEDS: CEFEPIME 2000 MG/NS 100 ML IV SCH ×2 (09:39)
[2017-08-27] MEDS: ONDANSETRON HCL 4 MG/2 ML VIAL IVP PRN ×2 (09:39→09:45)
[2017-08-27 10:29] VITALS: PULSE 84
[2017-08-27] MEDS ORDERED: LEVA750T9 PO (11:59)
[2017-08-27] MEDS ORDERED: LORA-474 PO (11:59)
[2017-08-27] MEDS ORDERED: DOXY100C PO ×2 (11:59→12:17)
[2017-08-27 12:00] VITALS: BP 140/68; PULSE 80; RESP 22; TEMP 98.2; O2SAT 95
[2017-08-27] MEDS ORDERED: LACTTAB8 PO (12:00)
--- NOTE | 2017-08-27 12:02 | HHI.DCPOC ---
Discharge Care Plan Diagnosis: (1) Sepsis (2) Hypoxia (3) Encephalopathy (4) Renal insufficiency (5) Rhabdomyolysis (6) SUZY (acute kidney injury) (7) Hyponatremia (8) HTN (hypertension) Goals to Promote Your Health * To prevent worsening of your condition and complications * To maintain your health at the optimal level Directions to Meet Your Goals Take your medications as prescribed Follow your dietary instruction Follow activity as directed Keep your appointments as scheduled Take your immunizations and boosters as scheduled If your symptoms worsen call your PCP, if no PCP go to Urgent Care Center or Emergency Room Smoking is Dangerous to Your Health. Avoid second hand smoke Call the 24-hour hour crisis hotline for domestic abuse at Rodríguez Solano MD Aug 27, 2017 12:02
[2017-08-27] MEDS ORDERED: LEVO750T3 PO (12:17)
--- NOTE | 2017-08-27 12:19 | HHI.DS ---
Discharge Summary Admission Date Aug 24, 2017 at 20:36 Discharge Date: Aug 27, 2017 Admitting Diagnosis sepsis, rhabdomyolysis, altered mental status, hypoxia (1) Sepsis ICD Code: A41.9 - Sepsis, unspecified organism Status: Resolved (2) Hypoxia ICD Code: R09.02 - Hypoxemia Status: Resolved (3) Rhabdomyolysis ICD Code: M62.82 - Rhabdomyolysis Status: Acute (4) Renal insufficiency ICD Code: N28.9 - Disorder of kidney and ureter, unspecified Status: Resolved (5) Encephalopathy ICD Code: G93.40 - Encephalopathy, unspecified Status: Resolved Procedures none Brief History - From Admission Ms. Dye is a 67 y/o female with a history of chronic pain on methadone , hypercholesterolemia, hypertension, COPD, and anxiety who was brought to the ED by her sons on 08/24/17 for evaluation of confusion/altered mental status. The patient has had declining mental status for 2 months. The patient was taken to [facility] on 08/21/17 after a home health nurse was visiting her and found her to be very confused. The patient was discharged 08/24/17 in the morning after and she reportedly had CT scans and MRIs done. The patient's sons were not aware of the cause of her condition upon her d/c from the hospital on 08/24/17. They brought her to [facility] for further evaluation. On arrival, her oxygen saturation was 90% on room air though CXR showed clear lungs; UA is not c/w UTI; head CT showed no acute pathology. Sodium is low at 129, BUN elevated at 24, creatinine elevated at 1.38, and eGFR is decreased to 38. CK is 1010, lactic acid is 3.1, AST elevated at 65 with normal ALT and ammonia level - Toxicology is negative. WBC elevated at 20.1 with neutrophilia. Temperature on admission is 99.3; pulse 100; respiratory rate 26 ; and bp 181/78. The patient was admitted for sepsis of undetermined etiology and encephalopathy of uncertain etiology. The patient is seen in her hospital room. She is completely confused. She cannot tell me where she is or why she is here; she is unable to provide any meaningful history and history is obtained from the EMR as a result. She denies pain but throws her legs over the side rails multiple times to try to get out of the bed; she cannot be reoriented and redirected. She is a high fall risk and requires restraints to prevent harm. CBC/BMP: 08/25/17 0931 08/27/17 0632 Significant Findings Laboratory Tests Test 08/24/17 19:15 08/25/17 00:59 08/25/17 09:31 08/26/17 07:40 White Blood Count 20.1 TH/MM3 (4.0-11.0) 12.0 TH/MM3 (4.0-11.0) Neutrophils (%) (Auto) 73.6 % (16.0-70.0) 80.8 % (16.0-70.0) Neutrophils # (Auto) 14.8 TH/MM3 (1.8-7.7) 9.7 TH/MM3 (1.8-7.7) Monocytes # (Auto) 1.5 TH/MM3 (0-0.9) 1.0 TH/MM3 (0-0.9) Urine Leukocyte Esterase TRACE (NEG) Urine Mucus FEW /lpf (OCC) Blood Urea Nitrogen 24 MG/DL (7-18) Creatinine 1.38 MG/DL (0.50-1.00) Aspartate Amino Transf (AST/SGOT) 65 U/L (15-37) 55 U/L (15-37) Sodium Level 129 MEQ/L (136-145) Chloride Level 93 MEQ/L (98-107) Estimat Glomerular Filtration Rate 38 ML/MIN (>89) 67 ML/MIN (>89) Lactic Acid Level 3.1 mmol/L (0.4-2.0) Total Creatine Kinase 1010 U/L (26-192) 860 U/L (26-192) 816 U/L (26-192) Creatine Kinase MB 11.7 NG/ML (0.5-3.6) 12.1 NG/ML (0.5-3.6) 13.5 NG/ML (0.5-3.6) Troponin I LESS THAN 0.02 NG/ML LESS THAN 0.02 NG/ML LESS THAN 0.02 NG/ML Acetaminophen Level LESS THAN 2.0 MCG/ML Total Protein 6.0 GM/DL (6.4-8.2) Albumin 3.2 GM/DL (3.4-5.0) Calcium Level 8.2 MG/DL (8.5-10.1) Test 08/27/17 06:32 Estimat Glomerular Filtration Rate 60 ML/MIN (>89) Imaging Last Impressions Head CT 08/24/171904 Signed Impressions: Service Date/Time: Thursday, August 24, 2017 20:04 - CONCLUSION: No acute findings in the brain. Sreekanth Blanca MD Chest X-Ray 08/24/171904 Signed Impressions: Service Date/Time: Thursday, August 24, 2017 19:23 - CONCLUSION: The lungs are clear. Sreekanth Blanca MD PE at Discharge GENERAL: Awake and alert, nad, anxious. SKIN: No rashes. Cool and dry. HEAD: Atraumatic. Normocephalic. EYES: No scleral icterus. No injection or drainage. ENT: Nose without bleeding, purulent drainage. NECK: Trachea midline. No JVD. CARDIOVASCULAR: Regular rate and rhythm without murmurs, gallops, or rubs. RESPIRATORY: Clear to auscultation. Breath sounds equal bilaterally. No wheezes , rales, or rhonchi. GASTROINTESTINAL: Abdomen soft, non-tender, nondistended. No guarding. GENITOURINARY: josé catheter draining clear yellow urine. MUSCULOSKELETAL: Extremities without clubbing, cyanosis, or edema. No calf tenderness. NEUROLOGICAL: awake and alert, anxious; follows commands. Pt update on day of discharge Denies any chest pain or shortness of breath. Patient is satting well on room air. Anxiety is much improved. Patient is awake alert oriented 3. Patient was offered and advised to be discharged to a jail facility, however patient refused. Pt Condition on Discharge: Stable Discharge Disposition: Disch w/ Home Health Serv Discharge Time: > 30 minutes Discharge Instructions DIET: Follow Instructions for: As Tolerated, No Restrictions Activities you can perform: Regular-No Restrictions, See Additionl Instruction Other Activity Instructions: As per PT instructions Follow up Referrals: PCP Follow-up - 2 Weeks New Medications: Doxycycline Hyclate (Doxycycline Hyclate) 100 Mg Cap 100 MG PO BID for Infection, #10 CAP 0 Refills Lactobacillus Acidophilus (Lactobacillus Acidophilus) 1 Billion Cell Tab 1 TAB PO TIDAC for Nutritional Supplement, #30 TAB 0 Refills Levofloxacin (Levofloxacin) 750 Mg Tablet 750 MG PO DAILY for Infection, #5 TAB 0 Refills Lorazepam (Ativan) 1 Mg Tab 1 MG PO Q12H PRN for MODERATE TO SEVERE ANXIETY, #30 TAB Continued Medications: Escitalopram (Escitalopram) 20 Mg Tab 20 MG PO DAILY, #30 TAB 0 Refills Gabapentin (Gabapentin) 300 Mg Cap 300 MG PO TID, #90 CAP 0 Refills Lisinopril-Hctz (Lisinopril-Hctz) 20-12.5 Mg Tab 1 TAB PO DAILY for Blood Pressure Management, #30 TAB 0 Refills Trazodone (Trazodone) 150 Mg Tablet 150 MG PO HS for Control Depression, #30 TAB 0 Refills Discontinued Medications: Lorazepam (Lorazepam) 1 Mg Tab 1 MG PO Q8H PRN for ANXIETY, TAB 0 Refills Rodríguez Solano MD Aug 27, 2017 12:19
--- NOTE | 2017-08-27 15:48 | HHI.FF ---
Face to Face Verification Diagnosis: (1) Encephalopathy (2) Hyponatremia (3) HTN (hypertension) (4) SUZY (acute kidney injury) (5) PNA (pneumonia) Physical Therapy Order: Improve ambulation, Strength and gait training Home Health Nursing Order: Nursing assessment with vital signs I have seen patient Mary Dye on 08/27/17. My clinical findings support the need for the requested home health care services because: Need for psychosocial assistance Impaired cognition/judgement High risk of falls I certify that my clinical findings support that this patient is homebound because: Impaired cognitive ability/safety Unsafe to leave home unassisted Need for psychosocial assistance Unable to use public transportation Rodríguez Solano MD Aug 27, 2017 15:48
[2017-08-28] MEDS ORDERED: PHARMACY ORDERED LAB ONE (17:45)
== END 2017-08-27 13:53 | disposition home health service (06) | DRG 871 ==
LOC: NEPE 18:17 → NEDA 20:36 → N04B 21:59
PROVIDERS: ADMIT Hospitalist; ATTEND Hospitalist
DX: A41.9 Sepsis, unspecified organism (principal); G93.41 Metabolic encephalopathy; N17.9 Acute kidney failure, unspecified; M62.82 Rhabdomyolysis; E87.1 Hypo-osmolality and hyponatremia; J44.9 Chronic obstructive pulmonary disease, unspecified; I10 Essential (primary) hypertension; G89.29 Other chronic pain; F41.9 Anxiety disorder, unspecified; Z79.891 Long term (current) use of opiate analgesic; R09.02 Hypoxemia; F17.210 Nicotine dependence, cigarettes, uncomplicated; E78.5 Hyperlipidemia, unspecified
CPT/HCPCS: 70450; 71045; 80053; 80202; 80307; 81001; 82140; 82550; 82552; 82565; 83605; 84443; 84484; 85025; 85610; 87040; 93005; 96360; J0692; J1644; J2060; J2405; J2543; J3370; J7030; J7050

== ENCOUNTER 2017-09-11 17:35 | Emergency (ER) | payer OTHER ==
[~2017-09-11] VITALS: Ht 162.6 cm; Wt 80.0 kg
[~2017-09-11 17:35] MED LIST: DOXY100C PO; ESCI20TA PO; GABA300C5 PO; LACTTAB8 PO; LEVO750T3 PO; LISI20TA PO; LORA-474 PO; TRAZ1TAB14 PO
[2017-09-11 18:15] VITALS: BP 143/66; PULSE 94; RESP 22; TEMP 98.7; O2SAT 96
[2017-09-11 19:08] VITALS: BP 146/78; PULSE 81; RESP 19; TEMP 98.4; O2SAT 98
[2017-09-11] MEDS ORDERED: SODIUM CHLOR 0.9% 1000 ML INJ 1,000 ML IV SCH (19:25)
[2017-09-11] MEDS ORDERED: RESP: ALBUTEROL 2.5 MG/IPRATROPIUM 0.5 MG NEB (SCH) NEB ONE (19:30)
[2017-09-11] MEDS ORDERED: SODIUM CHLORIDE 0.9% FLUSH 10 ML FLUSH IV FLUSH PRN (19:30)
--- NOTE | 2017-09-11 19:33 | PD ---
HPI Chief Complaint: Respiratory Symptoms Time Seen by Provider: 19:22 Travel History International Travel<30 days: No Contact w/Intl Traveler<30days: No Traveled to known affect area: No History of Present Illness HPI 67-year-old female presents to the emergency department by private transportation in the care of her sons for evaluation of progressive generalized weakness shortness of breath left subscapular pain with that worsens with breathing and movement as well as swelling of the right lower extremity. Patient was hospitalized approximately 2 weeks ago for sepsis and pneumonia. Patient was treated with IV antibiotics was also noted to have renal insufficiency with rhabdomyolysis and subsequently discharged home on doxycycline and Levaquin. Patient completed a course of antibiotics approximately 1 week ago. Son states initially patient was improving at home and then earlier this week he started noticing a decline with confusion and her complaining of shortness of breath and subscapular pain as well as today it was noticed by her home health nurse that she had swelling of the right lower extremity. Patient complains of swelling and pain to the right lower extremity. Patient denies any hemoptysis. Patient has had persistent congested cough. Patient states that she has a history of tobaccoism denies history of COPD although this is in her medical record as a chronic condition and does not use supplemental oxygen at home. Patient continues to smoke E cigarettes. Patient also has history of mental health issues/anxiety depression as well as hypertension dyslipidemia chronic pain syndrome and hepatitis C. The patient rates her overall pain 8/10 in intensity. PFSH Past Medical History Narrative Medical Anxiety depression chronic pain syndrome cervical spine surgery dyslipidemia hypertension COPD pneumonia tobaccoism; nursing notes reviewed Anxiety: Yes Depression: Yes High Cholesterol: Yes COPD: Yes Diminished Hearing: No Hepatitis: Yes (hep C ) Hypertension: Yes Psychiatric: Yes Pneumonia: Yes ?: Not Menopausal: Yes Past Surgical History Body Medical Devices: back and neck Other Surgery: Yes Social History Alcohol Use: No Tobacco Use: Yes (E Cig) Substance Use: No Allergies-Medications (Allergen,Severity, Reaction): Coded Allergies: No Known Allergies (Verified Allergy, Unknown, 09/11/17) Reported Meds & Prescriptions Reported Meds & Active Scripts Active Lactobacillus Acidophilus 1 Billion Cell Tab 1 Tab PO TIDAC Ativan (Lorazepam) 1 Mg Tab 1 Mg PO Q12H PRN Reported Gabapentin 300 Mg Cap 300 Mg PO TID Escitalopram (Escitalopram Oxalate) 20 Mg Tab 20 Mg PO DAILY Lisinopril-Hctz 20-12.5 Mg Tab 1 Tab PO DAILY Trazodone (Trazodone HCl) 150 Mg Tablet 150 Mg PO HS Review of Systems Except as stated in HPI: all other systems reviewed are Neg General / Constitutional: No: Fever, Chills HENT: No: Congestion Cardiovascular: No: Chest Pain or Discomfort Respiratory: Positive: Cough, Wheezing, No: Shortness of Breath Gastrointestinal: No: Vomiting, Abdominal Pain Genitourinary: No: Flank Pain Musculoskeletal: No: Myalgias, Arthralgias Skin: No Rash Neurologic: Positive: Weakness (generalized), No: Dizziness, Syncope Psychiatric: No: Anxiety Hematologic/Lymphatic: No: Easy Bruising Physical Exam Narrative GENERAL: Well-developed well-nourished female no acute distress no respiratory distress triage vital signs grossly within normal limits with room air O2 saturation 96% SKIN: Warm and dry. HEAD: Normocephalic. EYES: No scleral icterus. No injection or drainage. NECK: Supple, trachea midline. No JVD or lymphadenopathy. CARDIOVASCULAR: Regular rate and rhythm without murmurs, gallops, or rubs. RESPIRATORY: Breath sounds equal bilaterally few expiratory wheezes. No accessory muscle use. GASTROINTESTINAL: Abdomen soft, non-tender, nondistended. MUSCULOSKELETAL: No cyanosis, right lower extremity edema with palpable calf tenderness and Homans; bilateral dorsalis pedis pulses 2+ to palpation. Bilateral no coolness or pallor of the extremities. BACK: Nontender without obvious deformity. No CVA tenderness. Data Data Last Documented VS Vital Signs Date Time Temp Pulse Resp B/P (MAP) Pulse Ox O2 Delivery O2 Flow Rate FiO2 09/11/17 20:32 86 18 135/82 (99) 95 Room Air 09/11/17 19:08 98.4 Orders Orders Electrocardiogram (09/11/17 19:25) Ammonia (09/11/17 19:25) Complete Blood Count With Diff (09/11/17 19:25) Comprehensive Metabolic Panel (09/11/17 19:25) Creatine Kinase (Cpk) (09/11/17 19:25) Prothrombin Time / Inr (Pt) (09/11/17 19:25) Act Partial Throm Time (Ptt) (09/11/17 19:25) Troponin I (09/11/17 19:25) Urinalysis - C+S If Indicated (09/11/17 19:25) Lactic Acid Sepsis Protocol (09/11/17 19:25) Blood Culture (09/11/17 19:25) Chest, Single Ap (09/11/17 19:25) Ct Brain W/O Iv Contrast(Rout) (09/11/17 19:25) Blood Glucose (09/11/17 19:25) Ecg Monitoring (09/11/17 19:25) Iv Access Insert/Monitor (09/11/17 19:25) Oximetry (09/11/17 19:25) Sodium Chloride 0.9% Flush (Ns Flush) (09/11/17 19:30) Sodium Chlor 0.9% 1000 Ml Inj (Ns 1000 M (09/11/17 19:25) B-Type Natriuretic Peptide (09/11/17 19:25) Us Leg Venous Doppler (09/11/17 ) Magnesium (Mg) (09/11/17 19:25) Albuterol-Ipratropium Neb (Duoneb Neb) (09/11/17 19:30) Ct Pulmonary Angiogram (09/11/17 ) Ckmb (Isoenzyme) Profile (09/11/17 19:27) CKMB (09/11/17 19:50) CKMB% (09/11/17 19:50) Iohexol 350 Inj (Omnipaque 350 Inj) (09/11/17 21:10) Sodium Chlor 0.9% 1000 Ml Inj (Ns 1000 M (09/11/17 22:45) Ketorolac Inj (Toradol Inj) (09/11/17 22:45) Labs Laboratory Tests Test 09/11/17 19:50 09/11/17 20:10 White Blood Count 11.3 TH/MM3 Red Blood Count 4.36 MIL/MM3 Hemoglobin 12.6 GM/DL Hematocrit 37.8 % Mean Corpuscular Volume 86.8 FL Mean Corpuscular Hemoglobin 28.9 PG Mean Corpuscular Hemoglobin Concent 33.3 % Red Cell Distribution Width 13.8 % Platelet Count 235 TH/MM3 Mean Platelet Volume 8.4 FL Neutrophils (%) (Auto) 64.7 % Lymphocytes (%) (Auto) 26.7 % Monocytes (%) (Auto) 6.8 % Eosinophils (%) (Auto) 1.5 % Basophils (%) (Auto) 0.3 % Neutrophils # (Auto) 7.3 TH/MM3 Lymphocytes # (Auto) 3.0 TH/MM3 Monocytes # (Auto) 0.8 TH/MM3 Eosinophils # (Auto) 0.2 TH/MM3 Basophils # (Auto) 0.0 TH/MM3 CBC Comment DIFF FINAL Differential Comment Prothrombin Time 10.4 SEC Prothromb Time International Ratio 1.0 RATIO Activated Partial Thromboplast Time 25.1 SEC Blood Urea Nitrogen 13 MG/DL Creatinine 0.98 MG/DL Random Glucose 83 MG/DL Total Protein 6.6 GM/DL Albumin 3.4 GM/DL Calcium Level 9.2 MG/DL Magnesium Level 1.7 MG/DL Alkaline Phosphatase 74 U/L Aspartate Amino Transf (AST/SGOT) 32 U/L Alanine Aminotransferase (ALT/SGPT) 22 U/L Total Bilirubin 0.3 MG/DL Sodium Level 138 MEQ/L Potassium Level 3.4 MEQ/L Chloride Level 102 MEQ/L Carbon Dioxide Level 27.6 MEQ/L Anion Gap 8 MEQ/L Estimat Glomerular Filtration Rate 56 ML/MIN Lactic Acid Level 1.0 mmol/L Ammonia LESS THAN 10 MCMOL/L Total Creatine Kinase 406 U/L Creatine Kinase MB 5.1 NG/ML Creatine Kinase MB % 1.3 % Troponin I LESS THAN 0.02 NG/ML B-Type Natriuretic Peptide 16 PG/ML Urine Color YELLOW Urine Turbidity HAZY Urine pH 6.0 Urine Specific [place] 1.026 Urine Protein 30 mg/dL Urine Glucose (UA) NEG mg/dL Urine Ketones NEG mg/dL Urine Occult Blood NEG Urine Nitrite NEG Urine Bilirubin NEG Urine Urobilinogen 2.0 MG/DL Urine Leukocyte Esterase SMALL Urine RBC 6 /hpf Urine WBC 3 /hpf Urine Squamous Epithelial Cells 6 /hpf Urine Mucus FEW /lpf Microscopic Urinalysis Comment CULT NOT INDICATED MDM Medical Decision Making Medical Screen Exam Complete: Yes Emergency Medical Condition: Yes Medical Record Reviewed: Yes Interpretation(s) Last Impressions Head CT 09/11/[id number] Signed Impressions: Service Date/Time: Monday, September 11, 2017 19:35 - CONCLUSION: No acute disease. Delvin Nichole MD Chest X-Ray [id number]/11/[id number] Signed Impressions: Service Date/Time: Monday, September 11, 2017 19:58 - CONCLUSION: No acute disease. Delvin Nichole MD Lower Extremity Ultrasound 09/11/17 0000 Signed Impressions: Service Date/Time: Monday, September 11, 2017 21:46 - CONCLUSION: No evidence of deep venous thrombosis within the right lower extremity.. Delvin Nichole MD CT Angiography 09/11/17 0000 Signed Impressions: Service Date/Time: Monday, September 11, 2017 20:51 - CONCLUSION: 1. No evidence of pulmonary embolism. 2. Lingular scarring. 3. Coronary artery calcifications. 4. 1.6 on the right adrenal nodule consistent with probable small adenoma. Delvin Nichole MD CBC & BMP Diagram 09/11/17 19:50 Total Protein 6.6, Albumin 3.4, Calcium Level 9.2, Magnesium Level 1.7, Alkaline Phosphatase 74, Aspartate Amino Transf (AST/SGOT) 32, Alanine Aminotransferase (ALT/SGPT) 22, Total Bilirubin 0.3 EKG normal sinus rhythm rate 83 prolonged QT interval Vital Signs Date Time Temp Pulse Resp B/P (MAP) Pulse Ox O2 Delivery O2 Flow Rate FiO2 09/11/17 20:32 86 18 135/82 (99) 95 Room Air 09/11/17 20:00 20 95 Room Air 09/11/17 19:08 98.4 81 19 146/78 (100) 98 Room Air 09/11/17 19:08 20 98 Room Air 09/11/17 18:15 98.7 94 22 143/66 (91) 96 Differential Diagnosis Dyspnea, pneumonia, PE, CHF, ACS, [place], sepsis, DVT, electrolyte disturbance, metabolic encephalopathy, hyperammonemia, rhabdomyolysis, renal insufficiency, UTI Narrative Course Patient placed on cardiac rn with continuous pulse oximetry IV access obtained specimens collected and sent for resulting patient with DuoNeb updraft 1 Patient identified to have normal total white cell count without left shift Metabolic panel grossly within normal limits Troponin I is less than 0.02, not elevated CK total remains elevated however continues to taper down from last visit, BMP is 82 not elevated Urinalysis is normal Lactic acid is not elevated Patient feels well is desirous of being discharged home no acute abnormality identified when patient initially arrived she was slightly tachypneic with respiratory rate of 22 which has resolved after updraft treatments and wheezing has resolved also heart rate was slightly elevated but less than 100 and patient is stable for outpatient management at this time Sepsis Criteria SIRS Criteria (2 or more): Heart rate over 90, RR > 20 or PaCO2 < 32 Diagnosis Primary Impression: Generalized weakness Additional Impression: Bronchitis Referrals: Primary Care Physician Patient Instructions: General Instructions Additional Instructions: Increase fluid hydration Monitor temperature every 4 hours with thermometer and take as needed acetaminophen/Tylenol every 4 hours for fever 100.4F or greater Return to the emergency department for fever cough pain or any concerns Follow-up with your primary care provider call office in a.m. to schedule follow -up appointment this week Take albuterol inhaler as needed for wheezing or shortness of breath every 4-6 hours Complete course of steroid taper as prescribed Discontinue E cigarettes and continue to remain tobacco free Scripts Methylprednisolone Dosepak (Medrol Dosepak) 4 Mg Dspk 4 MG PO DIRECTED, #1 DSPK 0 Refills Per Pharmacist direction Prov: Sylvia Whatley MD 09/11/17 Albuterol 18 GM Inh (Ventolin Hfa 18 GM Inh) 90 Mcg/Act Aer 2 PUFF INH Q4-6H Y for SHORTNESS OF BREATH, #1 INHALER 0 Refills Prov: Sylvia Whatley MD 09/11/17 Disposition: 01 DISCHARGE HOME Condition: Stable Sylvia Whatley MD Sep 11, 2017 19:33
--- NOTE | 2017-09-11 19:46 | RADRPT ---
EXAM DATE/TIME: 09/11/2017 19:35 [facility] COMPARISON: CT BRAIN W/O CONTRAST, August 24, 2017, 20:04. INDICATIONS : Altered mental status. RADIATION DOSE: 36.37 CTDIvol (mGy) MEDICAL HISTORY : Hypertension. Chronic obstructive pulmonary disease. Hepatitis C. SURGICAL HISTORY : None. ENCOUNTER: Initial ACUITY: 1 day PAIN SCALE: 0/10 LOCATION: cranial TECHNIQUE: Multiple contiguous axial images were obtained of the head. Using automated exposure control and adj ustment of the mA and/or kV according to patient size, radiation dose was kept as low as reasonably a chievable to obtain optimal diagnostic quality images. DICOM format image data is available electro nically for review and comparison. FINDINGS: CEREBRUM: The ventricles are normal for age. No evidence of midline shift, mass lesion, hemorrhage or acute in farction. No extra-axial fluid collections are seen. POSTERIOR FOSSA: The cerebellum and brainstem are intact. The 4th ventricle is midline. The cerebellopontine angle i s unremarkable. EXTRACRANIAL: The visualized portion of the orbits is intact. SKULL: The calvaria is intact. No evidence of skull fracture. CONCLUSION: No acute disease. Delvin Nichole MD on September 11, 2017 at 19:44 Board Certified Radiologist. This report was verified electronically.
[2017-09-11 20:00] VITALS: RESP 20; O2SAT 95
[2017-09-11 20:06] LABS: AUTOMATED NEUTROPHIL # 7.3 TH/MM3 (1.8-7.7); BASOPHIL % 0.3 % (0.0-2.0); EOSINOPHIL # 0.2 TH/MM3 (0-0.4); EOSINOPHIL % 1.5 % (0.0-4.0); HEMATOCRIT 37.8 % (35.0-46.0); HEMOGLOBIN 12.6 GM/DL (11.6-15.3); LYMPH % 26.7 % (9.0-44.0); MEAN CELL VOLUME 86.8 FL (80.0-100.0); MEAN CORPUSCULAR HEMOGLOBIN 28.9 PG (27.0-34.0); MEAN CORPUSCULAR HGB CONC 33.3 % (32.0-36.0); MEAN PLATELET VOLUME 8.4 FL (7.0-11.0); MONO % 6.8 % (0.0-8.0); MONOCYTE # 0.8 TH/MM3 (0-0.9); NEUT % 64.7 % (16.0-70.0); PLATELET COUNT 235 TH/MM3 (150-450); RED BLOOD COUNT 4.36 MIL/MM3 (4.00-5.30); RED CELL DISTRIBUTION WIDTH 13.8 % (11.6-17.2); WHITE BLOOD COUNT 11.3 TH/MM3 (4.0-11.0)
[2017-09-11 20:13] LABS: PROTHROMBIN TIME - PATIENT 10.4 SEC (9.8-11.6)
[2017-09-11 20:23] LABS: ALBUMIN 3.4 GM/DL (3.4-5.0); ALT (GPT) 22 U/L (10-53); AST (GOT) 32 U/L (15-37); BICARBONATE 27.6 MEQ/L (21.0-32.0); BLOOD UREA NITROGEN 13 MG/DL (7-18); CALCIUM 9.2 MG/DL (8.5-10.1); CHLORIDE 102 MEQ/L (98-107); CREATININE 0.98 MG/DL (0.50-1.00); GLOMERULAR FILTRATION RATE 56 ML/MIN (>89); GLUCOSE,RANDOM 83 MG/DL (74-106); MAGNESIUM 1.7 MG/DL (1.5-2.5); SODIUM (NA) 138 MEQ/L (136-145)
--- NOTE | 2017-09-11 20:24 | RADRPT ---
EXAM DATE/TIME: 09/11/2017 19:58 [facility] COMPARISON: No previous studies available for comparison. INDICATIONS : Short of breath. MEDICAL HISTORY : Hypertension. Chronic obstructive pulmonary disease. Hepatitis C. SURGICAL HISTORY : None. ENCOUNTER: Initial ACUITY: 1 day PAIN SCORE: 0/10 LOCATION: Bilateral chest FINDINGS: A single view of the chest demonstrates the lungs to be symmetrically aerated without evidence of mas s, infiltrate or effusion. The cardiomediastinal contours are unremarkable. Degenerative changes and scoliosis of the lumbar spine are noted. CONCLUSION: No acute disease. Delvin Nichole MD on September 11, 2017 at 20:22 Board Certified Radiologist. This report was verified electronically.
[2017-09-11 20:27] LABS: ALKALINE PHOSPHATASE 74 U/L (45-117); TOTAL BILIRUBIN ADULT 0.3 MG/DL (0.2-1.0); TOTAL PROTEIN 6.6 GM/DL (6.4-8.2); TROPONIN I LESS THAN 0.02 NG/ML (0.02-0.05)
[2017-09-11 20:32] VITALS: BP 135/82; PULSE 86; RESP 18; O2SAT 95
[2017-09-11] MEDS ORDERED: IOHEXOL 350 MG/ML 10 ML VIAL (for RAD DIAG) IVCONTRAST ONE (21:10)
[2017-09-11 21:18] LABS: BILIRUBIN, URINE NEG (NEG); BLOOD, URINE NEG (NEG); GLUCOSE,URINE NEG (NEG); KETONE, URINE NEG (NEG); MUCUS URINE FEW /lpf (OCC); NITRITE,URINE NEG (NEG); SQUAMOUS EPITHELIAL CELL URINE 6 /hpf (0-5); URINE COLOR YELLOW (YELLW/STRAW); URINE LEUKOCYTE ESTERASE SMALL (NEG)
--- NOTE | 2017-09-11 21:27 | RADRPT ---
EXAM DATE/TIME: 09/11/2017 20:51 [facility] COMPARISON: No previous studies available for comparison. INDICATIONS : Shortness of breath. IV CONTRAST: 75 cc Omnipaque 350 (iohexol) IV RADIATION DOSE: 10.64 CTDIvol (mGy) MEDICAL HISTORY : Hepatitis C. Chronic obstructive pulmonary disease. Hypertension. SURGICAL HISTORY : None. ENCOUNTER: Initial ACUITY: 1 day PAIN SCALE: 5/10 LOCATION: Bilateral chest TECHNIQUE: Volumetric scanning of the chest was performed using a pulmonary embolism protocol MIP images were re constructed. Using automated exposure control and adjustment of the mA and/or kV according to patien t size, radiation dose was kept as low as reasonably achievable to obtain optimal diagnostic quality images. DICOM format image data is available electronically for review and comparison. Follow-up recommendations for detected pulmonary nodules are based at a minimum on nodule size and pa tient risk factors according to Fleischner Society Guidelines. FINDINGS: PULMONARY ARTERIES: No filling defects are seen in the pulmonary arteries through the segmental level. LUNGS: There is no consolidation or pneumothorax . Lingular scarring is noted. No concerning pulmonary nodu le is visualized. Tiny calcified granuloma is noted within the right lower lobe. PLEURAE: There is no pleural thickening or pleural effusion. MEDIASTINUM: There is good visualization of the great vessels of the middle mediastinum. No evidence of mediastin al or hilar adenopathy/mass. Coronary artery calcifications are noted. MUSCULOSKELETAL: Within normal limits for patient age. MISCELLANEOUS: The visualized upper abdominal organs demonstrate no acute abnormality. 1.6 cm right adrenal nodule i s noted and likely represents a small adenoma. CONCLUSION: 1. No evidence of pulmonary embolism. 2. Lingular scarring. 3. Coronary artery calcifications. 4. 1.6 on the right adrenal nodule consistent with probable small adenoma. Delvin Nichole MD on September 11, 2017 at 21:23 Board Certified Radiologist. This report was verified electronically.
--- NOTE | 2017-09-11 22:29 | RADRPT ---
EXAM DATE/TIME: 09/11/2017 21:46 [facility] COMPARISON: No previous studies available for comparison. INDICATIONS : Right leg swelling. MEDICAL HISTORY : Hypercholesterolemia. Hypertension. Chronic obstructive pulmonary disease. Pneumonia. Depression. Anxiety. Hep C. Fibromyalgia. SURGICAL HISTORY : Neck and back surgery. ENCOUNTER: Initial ACUITY: 1 day PAIN SCORE: 4/10 LOCATION: Right leg. TECHNIQUE: Venous ultrasound of the leg was performed from the inguinal ligament to the proximal calf. Real-greg e, color Doppler and spectral tracing, compression and augmentation techniques were used. FINDINGS: There is normal compressibility of the deep venous system from the inguinal region to the proximal ca lf. No echogenic clot is seen in the lumen of the common femoral, femoral, popliteal, and posterior tibial veins. There is a normal response of the venous system to proximal and distal augmentation an d respiration. CONCLUSION: No evidence of deep venous thrombosis within the right lower extremity.. Delvin Nichole MD on September 11, 2017 at 22:28 Board Certified Radiologist. This report was verified electronically.
[2017-09-11] MEDS ORDERED: KETOROLAC TROMETHAMINE 30 MG/ML (IVP) VIAL IV PUSH ONE (22:45)
[2017-09-11] MEDS ORDERED: SODIUM CHLOR 0.9% 1000 ML INJ 1,000 ML IV ONE (22:45)
[2017-09-11] MEDS ORDERED: VENTAER INH (23:03)
[2017-09-11] MEDS ORDERED: MEDR4PAK PO (23:12)
[2017-09-11 23:15] VITALS: PULSE 82; RESP 16; TEMP 97.6; O2SAT 95
--- NOTE | 2017-09-12 11:09 | EKG ---
Date Performed: 09/11/2017 Time Performed: 22:54:20 PTAGE: 67 years EKG: Sinus rhythm PROLONGED QT INTERVAL ABNORMAL ECG Since the prior tracing, there has been no significant change PREVIOUS TRACING : 08/24/2017 19.35 DOCTOR: Gabrielle Vee Interpretating Date/Time 09/12/2017 11:06:54
== END 2017-09-11 23:36 | disposition home or self-care (01) ==
LOC: NEPC 17:35
DX: R53.1 Weakness (principal); J40 Bronchitis, not specified as acute or chronic; R94.31 Abnormal electrocardiogram [ECG] [EKG]; E78.00 Pure hypercholesterolemia, unspecified; B19.20 Unspecified viral hepatitis C without hepatic coma; I10 Essential (primary) hypertension; F32.9 Major depressive disorder, single episode, unspecified; F17.290 Nicotine dependence, other tobacco product, uncomplicated
CPT/HCPCS: 70450; 71045; 71275; 80053; 81001; 82140; 82550; 82552; 83605; 83735; 83880; 84484; 85025; 85610; 85730; 87040; 93005; 93971; 94664; 96361; 96374; 99285; J1885; J7030; Q9967

== ENCOUNTER 2017-09-29 17:15 | Observation (INO) | payer MEDICARE, OTHER ==
[~2017-09-29] VITALS: Ht 157.5 cm; Wt 85.0 kg
[~2017-09-29 17:15] MED LIST changes: -DOXY100C PO; -LEVO750T3 PO; +MEDR4PAK PO; +VENTAER INH
[2017-09-29 17:19] VITALS: BP 120/60; PULSE 67; RESP 17; TEMP 98.2; O2SAT 92
[2017-09-29] MEDS ORDERED: SODIUM CHLOR 0.9% 1000 ML INJ 1,000 ML IV SCH ×2 (17:28→21:15)
[2017-09-29] MEDS ORDERED: SODIUM CHLORIDE 0.9% FLUSH 10 ML FLUSH IV FLUSH PRN ×2 (17:30→20:30)
[2017-09-29 17:32] VITALS: BP 138/74; PULSE 107; RESP 16; TEMP 98.8; O2SAT 95
[2017-09-29 17:55] VITALS: O2SAT 98
[2017-09-29] MEDS ORDERED: METH10TA PO (18:05)
--- NOTE | 2017-09-29 18:11 | RADRPT ---
EXAM DATE/TIME: 09/29/2017 17:58 [facility] COMPARISON: No previous studies available for comparison. INDICATIONS : Altered mental status. RADIATION DOSE: 52.13 CTDIvol (mGy) MEDICAL HISTORY : Hepatitis C. Hypertension. SURGICAL HISTORY : None. ENCOUNTER: Initial ACUITY: 1 day PAIN SCALE: Non-responsive LOCATION: Bilateral head TECHNIQUE: Multiple contiguous axial images were obtained of the head. Using automated exposure control and adj ustment of the mA and/or kV according to patient size, radiation dose was kept as low as reasonably a chievable to obtain optimal diagnostic quality images. DICOM format image data is available electro nically for review and comparison. FINDINGS: CEREBRUM: The ventricles are normal for age. No evidence of midline shift, mass lesion, hemorrhage or acute in farction. No extra-axial fluid collections are seen. POSTERIOR FOSSA: The cerebellum and brainstem are intact. The 4th ventricle is midline. The cerebellopontine angle i s unremarkable. EXTRACRANIAL: The visualized portion of the orbits is intact. SKULL: The calvaria is intact. No evidence of skull fracture. CONCLUSION: 1. No acute intracranial abnormalities. Arturo Terrell MD on September 29, 2017 at 18:07 Board Certified Radiologist. This report was verified electronically.
[2017-09-29 18:19] LABS: BLOOD, URINE NEG (NEG); GLUCOSE,URINE NEG (NEG); KETONE, URINE TRACE mg/dL (NEG); MUCUS URINE FEW /lpf (OCC); NITRITE,URINE NEG (NEG); PH, URINE 5.5 (5.0-8.5); SQUAMOUS EPITHELIAL CELL URINE 1 /hpf (0-5); URINE COLOR YELLOW (YELLW/STRAW); URINE LEUKOCYTE ESTERASE TRACE (NEG)
[2017-09-29 18:20] LABS: AUTOMATED NEUTROPHIL # 10.3 TH/MM3 (1.8-7.7); BASOPHIL % 0.2 % (0.0-2.0); EOSINOPHIL # 0.1 TH/MM3 (0-0.4); EOSINOPHIL % 0.5 % (0.0-4.0); HEMATOCRIT 38.8 % (35.0-46.0); HEMOGLOBIN 13.5 GM/DL (11.6-15.3); LYMPH % 16.9 % (9.0-44.0); LYMPHOCYTE # 2.3 TH/MM3 (1.0-4.8); MEAN CELL VOLUME 85.5 FL (80.0-100.0); MEAN CORPUSCULAR HEMOGLOBIN 29.8 PG (27.0-34.0); MEAN CORPUSCULAR HGB CONC 34.9 % (32.0-36.0); MEAN PLATELET VOLUME 8.4 FL (7.0-11.0); MONO % 6.6 % (0.0-8.0); MONOCYTE # 0.9 TH/MM3 (0-0.9); NEUT % 75.8 % (16.0-70.0); PLATELET COUNT 259 TH/MM3 (150-450); RED BLOOD COUNT 4.53 MIL/MM3 (4.00-5.30); RED CELL DISTRIBUTION WIDTH 13.3 % (11.6-17.2); WHITE BLOOD COUNT 13.6 TH/MM3 (4.0-11.0)
--- NOTE | 2017-09-29 18:24 | RADRPT ---
EXAM DATE/TIME: 09/29/2017 18:05 [facility] COMPARISON: CHEST SINGLE AP, September 11, 2017, 19:58. INDICATIONS : Syncope, alerted mental status, cough. MEDICAL HISTORY : None. SURGICAL HISTORY : None. ENCOUNTER: Initial ACUITY: 1 day PAIN SCORE: 0/10 LOCATION: Bilateral chest FINDINGS: A single view of the chest demonstrates mild basilar atelectasis. No effusion or pneumothorax. Heart size upper limits normal. Bilateral breast augmentation. Advanced arthropathy of the left shoulder. P revious fusion lower cervical spine. CONCLUSION: 1. Mild basilar atelectasis. Postsurgical changes as above. Arturo Terrell MD on September 29, 2017 at 18:21 Board Certified Radiologist. This report was verified electronically.
[2017-09-29 18:27] LABS: BILIRUBIN, URINE NEG (NEG)
[2017-09-29 18:45] LABS: ALBUMIN 3.8 GM/DL (3.4-5.0); AST (GOT) 22 U/L (15-37); BICARBONATE 27.3 MEQ/L (21.0-32.0); BLOOD UREA NITROGEN 21 MG/DL (7-18); CALCIUM 9.9 MG/DL (8.5-10.1); CREATININE 1.53 MG/DL (0.50-1.00); GLOMERULAR FILTRATION RATE 34 ML/MIN (>89); GLUCOSE,RANDOM 113 MG/DL (74-106)
[2017-09-29 18:46] LABS: ALT (GPT) 26 U/L (10-53)
--- NOTE | 2017-09-29 18:58 | PD ---
HPI Chief Complaint: Altered Mental Status Time Seen by Provider: 17:28 Travel History International Travel<30 days: No Contact w/Intl Traveler<30days: No Traveled to known affect area: No History of Present Illness HPI This is a 67-year-old female with a history of chronic neck and back pain, hypertension, COPD, depression, neuropathy, who presents today with complaints of altered mental status. The 2 sons were at the bedside state that she was recently admitted for sepsis. He states that over the last 2 days she has become confused and found wandering around her neighbors knocking on doors. They said that she clearly has altered mental status. They state that on the right out here, she was complaining that she needed to urinate. They do report that now that she is here in the ER, she is much more alert and awake and baseline. The concern that there may be some sort of psychiatric component to this as well. There is no reported fevers, chills. There is no reported nausea vomiting diarrhea. She does take methadone 70 mg daily for her chronic pain. They report no changes in any of her medications. PFSH Past Medical History Anxiety: Yes Depression: Yes High Cholesterol: Yes COPD: Yes Diminished Hearing: No Hepatitis: Yes (hep C ) Hypertension: Yes Psychiatric: Yes Pneumonia: Yes Menopausal: Yes Past Surgical History Body Medical Devices: back and neck Other Surgery: Yes Social History Alcohol Use: No Tobacco Use: Yes (E Cig) Substance Use: No Allergies-Medications (Allergen,Severity, Reaction): Coded Allergies: No Known Allergies (Verified Allergy, Unknown, 09/29/17) Reported Meds & Prescriptions Reported Meds & Active Scripts Active Ventolin Hfa 18 GM Inh (Albuterol Sulfate) 90 Mcg/Act Aer 2 Puff INH Q4-6H PRN Ativan (Lorazepam) 1 Mg Tab 1 Mg PO Q12H PRN Reported Methadone (Methadone HCl) 10 Mg Tab 70 Mg PO DAILY Gabapentin 300 Mg Cap 300 Mg PO TID Escitalopram (Escitalopram Oxalate) 20 Mg Tab 20 Mg PO DAILY Lisinopril-Hctz 20-12.5 Mg Tab 1 Tab PO DAILY Trazodone (Trazodone HCl) 150 Mg Tablet 150 Mg PO HS Review of Systems ROS Limitations: Clinical Condition (Patient unable to give the majority of her review of systems. Most of the review of systems were obtained through the sons.) Except as stated in HPI: all other systems reviewed are Neg General / Constitutional: No: Fever, Chills HENT: No: Headaches, Neck Pain Cardiovascular: No: Chest Pain or Discomfort, Palpitations Respiratory: Positive: Cough, No: Shortness of Breath (Chronic) Gastrointestinal: No: Nausea, Vomiting, Abdominal Pain Genitourinary: No: Dysuria, Incontinence Musculoskeletal: Positive: Pain (Chronic neck and back pain.), No: Limited ROM Neurologic: Positive: Change in Mentation, No: Weakness, Dizziness, Headache, Incontinence, Seizures Psychiatric: No: Substance Abuse Physical Exam Narrative GENERAL: Developed well-nourished female in no acute respiratory distress. SKIN: Focused skin assessment warm/dry. HEAD: Atraumatic. Normocephalic. EYES: No scleral icterus. No injection or drainage. ENT: No nasal bleeding or discharge. Mucous membranes pink and moist. NECK: Trachea midline. Supple. CARDIOVASCULAR: Tachycardic with a rate of 106. No obvious murmurs appreciated. RESPIRATORY: Bilateral expiratory wheezes in the bases. No rales appreciated. GASTROINTESTINAL: Abdomen soft, non-tender, nondistended. MUSCULOSKELETAL: No obvious deformities. No clubbing. No cyanosis. No edema. NEUROLOGICAL: Awake and alert. Answering some questions. She will follow commands. Signs remarked that she is much more awake and alert and she was previous.. No obvious cranial nerve deficits. Motor grossly within normal limits. Normal speech. Data Data Last Documented VS Vital Signs Date Time Temp Pulse Resp B/P (MAP) Pulse Ox O2 Delivery O2 Flow Rate FiO2 09/29/17 19:26 90 16 139/63 (88) 93 Room Air 09/29/17 17:32 98.8 Orders Orders Electrocardiogram (09/29/17 17:) Ammonia (09/29/17 17:28) Complete Blood Count With Diff (09/29/17 17:) Comprehensive Metabolic Panel (09/29/17 17:) Troponin I (09/29/17 17:) Thyroid Stimulating Hormone (09/29/17 17:) Urinalysis - C+S If Indicated (09/29/17 17:28) Lactic Acid Sepsis Protocol (09/29/17 17:28) Arterial Blood Gas (Abg) (09/29/17 17:28) Blood Culture (09/29/17 17:28) Chest, Single Ap (09/29/17 17:28) Ct Brain W/O Iv Contrast(Rout) (09/29/17 17:28) Blood Glucose (09/29/17 17:28) Ecg Monitoring (09/29/17 17:28) Iv Access Insert/Monitor (09/29/17 17:28) Oximetry (09/29/17 17:28) Sodium Chloride 0.9% Flush (Ns Flush) (09/29/17 17:30) Sodium Chlor 0.9% 1000 Ml Inj (Ns 1000 M (09/29/17 17:28) Arterial Blood Gas (Abg) (09/29/17 19:25) Labs Laboratory Tests Test 09/29/17 17:34 09/29/17 17:48 Urine Color YELLOW Urine Turbidity CLEAR Urine pH 5.5 Urine Specific [place] 1.026 Urine Protein 30 mg/dL Urine Glucose (UA) NEG mg/dL Urine Ketones TRACE mg/dL Urine Occult Blood NEG Urine Nitrite NEG Urine Bilirubin NEG Urine Urobilinogen 4.0 MG/DL Urine Leukocyte Esterase TRACE Urine RBC 1 /hpf Urine WBC 3 /hpf Urine Squamous Epithelial Cells 1 /hpf Urine Mucus FEW /lpf Microscopic Urinalysis Comment CATH-CULT NOT IND White Blood Count 13.6 TH/MM3 Red Blood Count 4.53 MIL/MM3 Hemoglobin 13.5 GM/DL Hematocrit 38.8 % Mean Corpuscular Volume 85.5 FL Mean Corpuscular Hemoglobin 29.8 PG Mean Corpuscular Hemoglobin Concent 34.9 % Red Cell Distribution Width 13.3 % Platelet Count 259 TH/MM3 Mean Platelet Volume 8.4 FL Neutrophils (%) (Auto) 75.8 % Lymphocytes (%) (Auto) 16.9 % Monocytes (%) (Auto) 6.6 % Eosinophils (%) (Auto) 0.5 % Basophils (%) (Auto) 0.2 % Neutrophils # (Auto) 10.3 TH/MM3 Lymphocytes # (Auto) 2.3 TH/MM3 Monocytes # (Auto) 0.9 TH/MM3 Eosinophils # (Auto) 0.1 TH/MM3 Basophils # (Auto) 0.0 TH/MM3 CBC Comment DIFF FINAL Differential Comment Blood Urea Nitrogen 21 MG/DL Creatinine 1.53 MG/DL Random Glucose 113 MG/DL Albumin 3.8 GM/DL Calcium Level 9.9 MG/DL Aspartate Amino Transf (AST/SGOT) 22 U/L Alanine Aminotransferase (ALT/SGPT) 26 U/L Carbon Dioxide Level 27.3 MEQ/L Estimat Glomerular Filtration Rate 34 ML/MIN Lactic Acid Level 1.8 mmol/L Ammonia 13 MCMOL/L MDM Medical Decision Making Medical Screen Exam Complete: Yes Emergency Medical Condition: Yes Differential Diagnosis Metabolic disorder versus intracranial injury versus medication related mental status changes versus dementia Narrative Course 67-year-old female with history of COPD, chronic neck and back pain, hypertension, depression, presents here with altered mental status. Patient's son state that they found her wandering around the neighborhood knocking on people's doors. Labs are pending at this time. She will be signed out to Dr. Herrera at change of shift. I believe she will need to be admitted to the hospital and have a psychiatric consultation as well as case management workup for possible placement. Given the fact that she is wondering the neighborhood and knocking on random people's doors, I do not believe she is safe for discharge home. Diagnosis Primary Impression: Altered mental status Additional Impressions: History of COPD Chronic neck and back pain Recent sepsis Navin Jack MD Sep 29, 2017 18:58
[2017-09-29 19:26] VITALS: BP 139/63; PULSE 90; RESP 16; O2SAT 93
--- NOTE | 2017-09-29 19:30 | PD ---
Physical Exam Narrative General: The patient is a well-developed well-nourished female in no acute distress. Head and Neck exam: Head is normocephalic atraumatic. Eyes: EOMI, pupils are equal round and reactive to light. Nose: Midline septum with pink mucous membranes Mouth: Dentition unremarkable. Moist mucus membranes. Posterior oropharynx is not erythematous. No tonsillar hypertrophy. Uvula midline. Airway patent. Neck: No palpable lymphadenopathy. No nuchal rigidity. No thyromegaly. Cardiovascular: Regular rate and rhythm without murmurs, gallops, or rubs. No pulse deficit to the extremities on simultaneous auscultation and palpation of her radial artery. Lungs: Clear to auscultation bilaterally. No wheezes, rhonchi, or rales. Abdomen: Soft, without tenderness to palpation in all 4 quadrants of the abdomen. No guarding, rebound, or rigidity. Normal bowel sounds are audible. No tenderness on palpation of McBurney's point. Negative Leggett sign. Extremities: No clubbing, cyanosis, or edema. 2+ pulses in all 4 extremities. No calf tenderness on palpation. Back: No costovertebral angle tenderness to palpation. Neurologic Exam: Cranial nerves 2-12 were intact on exam. Strength is 5/5 in all 4 extremities. No sensory deficits noted. She is oriented to person and place, however not time or situation. Skin Exam: No rash noted. Intact skin that is warm and dry. Data Data Last Documented VS Vital Signs Date Time Temp Pulse Resp B/P (MAP) Pulse Ox O2 Delivery O2 Flow Rate FiO2 09/29/17 19:26 90 16 139/63 (88) 93 Room Air 09/29/17 17:32 98.8 Orders Orders Electrocardiogram (09/29/17 17:) Ammonia (09/29/17 17:28) Complete Blood Count With Diff (09/29/17 17:) Comprehensive Metabolic Panel (09/29/17:) Troponin I (09/29/17 17:) Thyroid Stimulating Hormone (09/29/17 17:28) Urinalysis - C+S If Indicated (09/29/17 17:28) Lactic Acid Sepsis Protocol (09/29/17 17:28) Blood Culture (09/29/17 17:28) Chest, Single Ap (09/29/17 17:28) Ct Brain W/O Iv Contrast(Rout) (09/29/17 17:28) Blood Glucose (09/29/17 17:28) Ecg Monitoring (09/29/17 17:28) Iv Access Insert/Monitor (09/29/17 17:28) Oximetry (09/29/17 17:28) Sodium Chloride 0.9% Flush (Ns Flush) (09/29/17 17:30) Sodium Chlor 0.9% 1000 Ml Inj (Ns 1000 M (09/29/17 17:28) Arterial Blood Gas (Abg) (09/29/17 19:25) Potassium Chloride (Kcl) (09/29/17 19:45) Admit Order (Ed Use Only) (09/29/17 20:01) Labs Laboratory Tests Test 09/29/17 17:34 09/29/17 17:48 09/29/17 19:45 Urine Color YELLOW Urine Turbidity CLEAR Urine pH 5.5 Urine Specific [place] 1.026 Urine Protein 30 mg/dL Urine Glucose (UA) NEG mg/dL Urine Ketones TRACE mg/dL Urine Occult Blood NEG Urine Nitrite NEG Urine Bilirubin NEG Urine Urobilinogen 4.0 MG/DL Urine Leukocyte Esterase TRACE Urine RBC 1 /hpf Urine WBC 3 /hpf Urine Squamous Epithelial Cells 1 /hpf Urine Mucus FEW /lpf Microscopic Urinalysis Comment CATH-CULT NOT IND White Blood Count 13.6 TH/MM3 Red Blood Count 4.53 MIL/MM3 Hemoglobin 13.5 GM/DL Hematocrit 38.8 % Mean Corpuscular Volume 85.5 FL Mean Corpuscular Hemoglobin 29.8 PG Mean Corpuscular Hemoglobin Concent 34.9 % Red Cell Distribution Width 13.3 % Platelet Count 259 TH/MM3 Mean Platelet Volume 8.4 FL Neutrophils (%) (Auto) 75.8 % Lymphocytes (%) (Auto) 16.9 % Monocytes (%) (Auto) 6.6 % Eosinophils (%) (Auto) 0.5 % Basophils (%) (Auto) 0.2 % Neutrophils # (Auto) 10.3 TH/MM3 Lymphocytes # (Auto) 2.3 TH/MM3 Monocytes # (Auto) 0.9 TH/MM3 Eosinophils # (Auto) 0.1 TH/MM3 Basophils # (Auto) 0.0 TH/MM3 CBC Comment DIFF FINAL Differential Comment Blood Urea Nitrogen 21 MG/DL Creatinine 1.53 MG/DL Random Glucose 113 MG/DL Total Protein 7.3 GM/DL Albumin 3.8 GM/DL Calcium Level 9.9 MG/DL Alkaline Phosphatase 67 U/L Aspartate Amino Transf (AST/SGOT) 22 U/L Alanine Aminotransferase (ALT/SGPT) 26 U/L Total Bilirubin 0.5 MG/DL Sodium Level 137 MEQ/L Potassium Level 3.3 MEQ/L Chloride Level 98 MEQ/L Carbon Dioxide Level 27.3 MEQ/L Anion Gap 12 MEQ/L Estimat Glomerular Filtration Rate 34 ML/MIN Lactic Acid Level 1.8 mmol/L Ammonia 13 MCMOL/L Troponin I LESS THAN 0.02 NG/ML Thyroid Stimulating Hormone 3rd Gen 1.640 uIU/ML Blood Gas Puncture Site RT RADIAL Blood Gas Patient Temperature 98.6 Blood Gas HCO3 25 mmol/L Blood Gas Base Excess 0.6 mmol/L Blood Gas Oxygen Saturation 92 % Arterial Blood pH 7.42 Arterial Blood Partial Pressure CO2 38 mmHg Arterial Blood Partial Pressure O2 75 mmHG Arterial Blood Oxygen Content 15.9 Vol % Arterial Blood Carboxyhemoglobin 1.6 % Arterial Blood Methemoglobin 0.6 % Blood Gas Hemoglobin 12.2 G/DL Oxygen Delivery Device ROOM AIR Blood Gas Inspired Oxygen 21 % MDM Medical Record Reviewed: Yes Supervised Visit with FLAKO: No Narrative Course During the course of the patient's emergency department visit, the patient's history, examination, and differential diagnosis were reviewed with the patient. The patient was placed on a patient monitor with oximetry and frequent blood pressure monitoring. The patient had IV access obtained and blood work sent for analysis. The patient's case was checked out to me by Dr. Jack. Please see his complete history and physical. The patient's case was checked out to me at the conclusion of his shift. The patient is a 67-year-old female who presents to [facility] emergency department with a reported history of altered mentation. The patient has not been on her baseline of mentation for the last couple of months according to her 2 sons at the bedside. She reportedly lives at home alone. Over the last couple of days she has been increasingly confused and thinking that she was locked out of her house, knocking on various neighbors doors. The patient reportedly does have a history of chronic neck and back pain, however her usual medications are administered to her by her son's, therefore they deny any chance of her taking extra medications. They deny any increase in her sedative medications recently. They do report that she was recently admitted to the hospital for sepsis and pneumonia. The patient had an EKG done on arrival that shows a sinus tachycardia rate of 104, QRS duration 92 ms, QTC 425 ms, no acute ST segment elevation. The patient was initially provided normal saline at 125 mL/h. The patient's laboratory studies were reviewed and remarkable for a white count of 13.6, hemoglobin 13.5, platelets 259 with 75.8 neutrophils. CMP is remarkable for a BUN of 21, creatinine 1.53, glucose 113, mild hypokalemia which was supplemented orally. CPK 406, MB percent 1.3, ammonia level is 13, lactic acid 1.8, albumin 3.8, urinalysis shows no acute abnormality. An ABG was done to rule out hypercapnia as a cause of her altered mentation. The patient's pH was 7.42, PCO2 38.4, PO2 74.5, bicarb 24.5, carboxyhemoglobin 1.6. Radiology studies were reviewed and remarkable for a chest x-ray that shows mild basilar atelectasis, no other acute abnormality, CT scan of the brain shows no acute abnormality. The patient will be admitted to the hospital for continued evaluation of altered mentation. The patient lives at home alone and the family is turned about her competence. The patient's results were discussed with the patient, including the plan of care. I explained that further testing and/ or monitoring is indicated based on the patient's history, examination, and/ or laboratory findings. Therefore, I recommended admission for additional evaluation. The patient expressed understanding and was agreeable with this plan. The patient was admitted to the hospital in stable condition and sent to a bed under the care of the [facility] service. Physician Communication Physician Communication The patient's case including history, pertinent physical examination findings, and laboratory studies were discussed with Dr. Doan. It was agreed that the patient would be admitted to the [facility] service. Diagnosis Primary Impression: Altered mental status Qualified Codes: R41.0 - Disorientation, unspecified Admitting Information Admitting Physician Requests: Krysta Levy MD Sep 29, 2017 19:30
[2017-09-29 19:32] LABS: CHLORIDE 98 MEQ/L (98-107); SODIUM (NA) 137 MEQ/L (136-145)
[2017-09-29 19:39] LABS: ALKALINE PHOSPHATASE 67 U/L (45-117); TOTAL BILIRUBIN ADULT 0.5 MG/DL (0.2-1.0); TOTAL PROTEIN 7.3 GM/DL (6.4-8.2); TROPONIN I LESS THAN 0.02 NG/ML (0.02-0.05)
[2017-09-29] MEDS ORDERED: POTASSIUM CHLORIDE 20 MEQ CONTROLLED RELEASE TAB PO ONE (19:45)
[2017-09-29] MEDS ORDERED: ONDANSETRON HCL 4 MG/2 ML VIAL IVP PRN (20:30)
[2017-09-29] MEDS ORDERED: NALOXONE HCL 0.4 MG/ML AMP IV PUSH PRN (20:30)
[2017-09-29] MEDS ORDERED: ALBUTEROL SULFATE 90 MCG/ACT HFA 8 GM INHALER INH PRN (20:30)
[2017-09-29] MEDS: SODIUM CHLORIDE 0.9% FLUSH 10 ML FLUSH IV FLUSH SCH (21:00)
--- NOTE | 2017-09-29 21:13 | HHI.HP ---
[facility] Primary Care Physician Cade Bianchi D.O. Admission Diagnosis AMS Diagnoses: Travel History International Travel<30 Days: No Contact w/Intl Traveler <30 Da: No Traveled to Known Affected Are: No History of Present Illness 67-year-old female with a past medical history significant for chronic back pain , hypertension, COPD, neuropathy and anxiety/depression presents to the emergency department for evaluation of altered mental status. The patient was brought to the emergency department by her 2 sons who are at bedside when she was seen by the emergency medicine physician. According to ER documentation the patient had become or confused for approximately the last 2 days and was found wandering around her neighbor's houses knocking on doors. This is significantly different from the patient's baseline. She has been having increased confusion for the past month. The sons are concerned that there may be a psychiatric component to the patient's behavior. He has no complaints when I see her. She states she does not know why she is in the emergency department. She denies any chest pain or shortness of breath. Denies fever/ chills. No nausea/vomiting/diarrhea. The patient is on multiple sedating medications however her sons who help her with her medications claimed that she has not had any recent changes and is not overdosing on these medications. Review of Systems Unable to obtain secondary to clinical condition Past Family Social History Past Medical History chronic back pain, hypertension, COPD, neuropathy and anxiety/depression Past Surgical History Unable to obtain Reported Medications Reported Meds & Active Scripts Active Ventolin Hfa 18 GM Inh (Albuterol Sulfate) 90 Mcg/Act Aer 2 Puff INH Q4-6H PRN Ativan (Lorazepam) 1 Mg Tab 1 Mg PO Q12H PRN Reported Methadone (Methadone HCl) 10 Mg Tab 70 Mg PO DAILY Gabapentin 300 Mg Cap 300 Mg PO TID Escitalopram (Escitalopram Oxalate) 20 Mg Tab 20 Mg PO DAILY Lisinopril-Hctz 20-12.5 Mg Tab 1 Tab PO DAILY Trazodone (Trazodone HCl) 150 Mg Tablet 150 Mg PO HS Allergies: Coded Allergies: No Known Allergies (Verified Allergy, Unknown, 09/29/17) Family History Unable to obtain Social History Patient denies alcohol, tobacco and illicit drugs Physical Exam Vital Signs Vital Signs Date Time Temp Pulse Resp B/P (MAP) Pulse Ox O2 Delivery O2 Flow Rate FiO2 09/29/17 19:26 90 16 139/63 (88) 93 Room Air 09/29/17 17:55 98 09/29/17 17:32 98.8 107 16 138/74 (95) 95 Room Air 09/29/17 17:19 98.2 67 17 120/60 (80) 92 Physical Exam GENERAL: Pleasant, female sitting up in bed eating SKIN: No rashes, ecchymoses or lesions. Cool and dry. HEAD: Atraumatic. Normocephalic. No temporal or scalp tenderness. EYES: Pupils equal round and reactive. Extraocular motions intact. No scleral icterus. No injection or drainage. ENT: Nose without bleeding, purulent drainage or septal hematoma. Throat without erythema, tonsillar hypertrophy or exudate. Uvula midline. Airway patent. NECK: Trachea midline. No JVD or lymphadenopathy. Supple, nontender, no meningeal signs. CARDIOVASCULAR: Regular rate and rhythm without murmurs, gallops, or rubs. RESPIRATORY: Clear to auscultation. Breath sounds equal bilaterally. No wheezes , rales, or rhonchi. GASTROINTESTINAL: Abdomen soft, non-tender, nondistended. No hepato-splenomegaly , or palpable masses. No guarding. MUSCULOSKELETAL: Extremities without clubbing, cyanosis, or edema. No joint tenderness, effusion, or edema noted. No calf tenderness. NEUROLOGICAL: Awake and alert. Cranial nerves II through XII intact. Motor and sensory grossly within normal limits. Normal speech. Patient is A&O 1. Confused. Laboratory Laboratory Tests Test 09/29/17 17:34 09/29/17 17:48 09/29/17 19:45 Urine Color YELLOW Urine Turbidity CLEAR Urine pH 5.5 Urine Specific [place] 1.026 Urine Protein 30 Urine Glucose (UA) NEG Urine Ketones TRACE Urine Occult Blood NEG Urine Nitrite NEG Urine Bilirubin NEG Urine Urobilinogen 4.0 Urine Leukocyte Esterase TRACE Urine RBC 1 Urine WBC 3 Urine Squamous Epithelial Cells 1 Urine Mucus FEW Microscopic Urinalysis Comment CATH-CULT NOT IND White Blood Count 13.6 Red Blood Count 4.53 Hemoglobin 13.5 Hematocrit 38.8 Mean Corpuscular Volume 85.5 Mean Corpuscular Hemoglobin 29.8 Mean Corpuscular Hemoglobin Concent 34.9 Red Cell Distribution Width 13.3 Platelet Count 259 Mean Platelet Volume 8.4 Neutrophils (%) (Auto) 75.8 Lymphocytes (%) (Auto) 16.9 Monocytes (%) (Auto) 6.6 Eosinophils (%) (Auto) 0.5 Basophils (%) (Auto) 0.2 Neutrophils # (Auto) 10.3 Lymphocytes # (Auto) 2.3 Monocytes # (Auto) 0.9 Eosinophils # (Auto) 0.1 Basophils # (Auto) 0.0 CBC Comment DIFF FINAL Differential Comment Blood Urea Nitrogen 21 Creatinine 1.53 Random Glucose 113 Total Protein 7.3 Albumin 3.8 Calcium Level 9.9 Alkaline Phosphatase 67 Aspartate Amino Transf (AST/SGOT) 22 Alanine Aminotransferase (ALT/SGPT) 26 Total Bilirubin 0.5 Sodium Level 137 Potassium Level 3.3 Chloride Level 98 Carbon Dioxide Level 27.3 Anion Gap 12 Estimat Glomerular Filtration Rate 34 Lactic Acid Level 1.8 Ammonia 13 Troponin I LESS THAN 0.02 Thyroid Stimulating Hormone 3rd Gen 1.640 Blood Gas Puncture Site RT RADIAL Blood Gas Patient Temperature 98.6 Blood Gas HCO3 25 Blood Gas Base Excess 0.6 Blood Gas Oxygen Saturation 92 Arterial Blood pH 7.42 Arterial Blood Partial Pressure CO2 38 Arterial Blood Partial Pressure O2 75 Arterial Blood Oxygen Content 15.9 Arterial Blood Carboxyhemoglobin 1.6 Arterial Blood Methemoglobin 0.6 Blood Gas Hemoglobin 12.2 Oxygen Delivery Device ROOM AIR Blood Gas Inspired Oxygen 21 Date/Time Source Procedure Growth Status 09/29/17 17:48 Blood Peripheral Aerobic Blood Culture Pending Received 09/29/17 17:48 Blood Peripheral Anaerobic Blood Culture Pending Received Result Diagram: 09/29/17 [id number] Caprini VTE Risk Assessment Caprini VTE Risk Assessment: Mod/High Risk (score >= 2) Caprini Risk Assessment Model Point Value = 1 Point Value = 2 Point Value = 3 Point Value = 5 Age 41-60 Minor surgery BMI > 25 kg/m2 Swollen legs Varicose veins or History of unexplained or recurrent spontaneous Oral contraceptives or hormone replacement Sepsis (< 1 month) Serious lung disease, including pneumonia (< 1 month) Abnormal pulmonary function Acute myocardial infarction Congestive heart failure (< 1 month) History of inflammatory bowel disease Medical patient at bed rest Age 61-74 Arthroscopic surgery Major open surgery (> 45 min) Laparoscopic surgery (> 45 min) Malignancy Confined to bed (> 72 hours) Immobilizing plaster cast Central venous access Age >= 75 History of VTE Family history of VTE Factor V Leiden Prothrombin [id number] Lupus anticoagulant Anticardiolipin antibodies Elevated serum homocysteine Heparin-induced thrombocytopenia Other congenital or acquired thrombophilia Stroke (< 1 month) Elective arthroplasty Hip, pelvis, or leg fracture Acute spinal cord injury (< 1 month) Prophylaxis Regimen Total Risk Factor Score Risk Level Prophylaxis Regimen 0-1 Low Early ambulation 2 Moderate Order ONE of the following: *Sequential Compression Device (SCD) *Heparin 5000 units SQ BID 3-4 Higher Order ONE of the following medications: *Heparin 5000 units SQ TID *Enoxaparin/Lovenox 40 mg SQ daily (WT < 150 kg, CrCl > 30 mL/min) *Enoxaparin/Lovenox 30 mg SQ daily (WT < 150 kg, CrCl > 10-29 mL/min) *Enoxaparin/Lovenox 30 mg SQ BID (WT < 150 kg, CrCl > 30 mL/min) AND/OR *Sequential Compression Device (SCD) 5 or more Highest Order ONE of the following medications: *Heparin 5000 units SQ TID (Preferred with Epidurals) *Enoxaparin/Lovenox 40 mg SQ daily (WT < 150 kg, CrCl > 30 mL/min) *Enoxaparin/Lovenox 30 mg SQ daily (WT < 150 kg, CrCl > 10-29 mL/min) *Enoxaparin/Lovenox 30 mg SQ BID (WT < 150 kg, CrCl > 30 mL/min) AND *Sequential Compression Device (SCD) Assessment and Plan Assessment and Plan Assessment/plan: 1. Altered mental status Likely secondary to multiple sedating medications with possible psychiatric component Possibly dementia - has been declining over the past month CT of the head negative for acute process, personally reviewed Electrolytes and ammonia levels within normal limits No signs of infection Psychiatry consulted to evaluate for psychiatric anomalies and evaluation of competency Palliative care consulted to assist with goals of care as patient is clearly no longer able to care for herself and lives alone at this time Case management consulted for assistance of possible placement 2. Chronic pain Holding patient's gabapentin and methadone as this may be contributing to her altered mental status 3. Depression/anxiety Holding home trazodone, Ativan 4. COPD/hypertension Continue home medication 5. SUZY Creatinine 1.53, baseline 0.9 IV fluid hydration Monitor renal function FEN Heart healthy diet Electrolytes: Monitor and replete when necessary, s/p PO K, f/u BMP in am NS at 100 cc/hr Heparin Jaelyn Doan MD Sep 29, 2017 21:13
[2017-09-29] MEDS: HEPARIN SODIUM - SQ 10,000 UNITS/ML VIAL SQ SCH (23:14)
[2017-09-30 04:28] VITALS: PULSE 64
[2017-09-30 05:33] VITALS: BP 101/58; PULSE 77; RESP 16; TEMP 98.3; O2SAT 93
[2017-09-30] MEDS: HEPARIN SODIUM - SQ 10,000 UNITS/ML VIAL SQ SCH (06:20)
--- NOTE | 2017-09-30 08:11 | HHI.DS ---
Discharge Summary Admission Date Sep 29, 2017 at 20:04 Discharge Date: Oct 01, 2017 Admitting Diagnosis AMS (1) Encephalopathy ICD Code: G93.40 - Encephalopathy, unspecified Status: Resolved (2) HTN (hypertension) ICD Code: I10 - Essential (primary) hypertension (3) History of COPD ICD Code: Z87.09 - Personal history of other diseases of the respiratory system Status: Acute (4) Chronic neck and back pain ICD Code: M54.2 - Cervicalgia; M54.9 - Dorsalgia, unspecified Status: Acute (5) Altered mental status ICD Code: R41.82 - Altered mental status, unspecified Status: Acute (6) Dementia ICD Code: F03.90 - Unspecified dementia without behavioral disturbance Procedures none Brief History - From Admission 67-year-old female with a past medical history significant for chronic back pain , hypertension, COPD, neuropathy and anxiety/depression presents to the emergency department for evaluation of altered mental status. The patient was brought to the emergency department by her 2 sons who are at bedside when she was seen by the emergency medicine physician. According to ER documentation the patient had become or confused for approximately the last 2 days and was found wandering around her neighbor's houses knocking on doors. This is significantly different from the patient's baseline. She has been having increased confusion for the past month. The sons are concerned that there may be a psychiatric component to the patient's behavior. He has no complaints when I see her. She states she does not know why she is in the emergency department. She denies any chest pain or shortness of breath. Denies fever/ chills. No nausea/vomiting/diarrhea. The patient is on multiple sedating medications however her sons who help her with her medications claimed that she has not had any recent changes and is not overdosing on these medications. CBC/BMP: 09/29/17 1748 09/29/17 1748 Significant Findings Laboratory Tests Test 09/29/17 17:34 09/29/17 17:48 09/29/17 19:45 Urine Protein 30 mg/dL (NEG-TRACE) Urine Ketones TRACE mg/dL (NEG) Urine Urobilinogen 4.0 MG/DL (LESS THAN Urine Leukocyte Esterase TRACE (NEG) Urine Mucus FEW /lpf (OCC) White Blood Count 13.6 TH/MM3 (4.0-11.0) Neutrophils (%) (Auto) 75.8 % (16.0-70.0) Neutrophils # (Auto) 10.3 TH/MM3 (1.8-7.7) Blood Urea Nitrogen 21 MG/DL (7-18) Creatinine 1.53 MG/DL (0.50-1.00) Random Glucose 113 MG/DL (74-106) Potassium Level 3.3 MEQ/L (3.5-5.1) Estimat Glomerular Filtration Rate 34 ML/MIN (>89) Troponin I LESS THAN 0.02 NG/ML Imaging Last Impressions Head CT [id number]/29/[id number] Signed Impressions: Service Date/Time: Friday, September 29, 2017 17:58 - CONCLUSION: 1. No acute intracranial abnormalities. Arturo Terrell MD Chest X-Ray [id number]/29/[id number] Signed Impressions: Service Date/Time: Friday, September 29, 2017 18:05 - CONCLUSION: 1. Mild basilar atelectasis. Postsurgical changes as above. Arturo Terrell MD PE at Discharge GENERAL: Pleasant, female sitting up in bed eating CARDIOVASCULAR: Regular rate and rhythm without murmurs, gallops, or rubs. RESPIRATORY: Clear to auscultation. Breath sounds equal bilaterally. No wheezes , rales, or rhonchi. GASTROINTESTINAL: Abdomen soft, non-tender, nondistended. No hepato-splenomegaly , or palpable masses. No guarding. MUSCULOSKELETAL: Extremities without clubbing, cyanosis, or edema. No joint tenderness, effusion, or edema noted. No calf tenderness. NEUROLOGICAL: Awake and alert. Cranial nerves II through XII intact. Motor and sensory grossly within normal limits. Normal speech. Patient is A&O 1. Confused. Pt update on day of discharge In bed appears in nad. Denies chest pain or sob. Has no back pain at this time. More awake and alert. Says she wants to go home and says she feels good except that she feels lonely. No fever ro chills. no sob, wheezing. Hospital Course 67 yo F with Acute encephalopathy - Altered mental status Likely secondary to multiple sedating medications with possible psychiatric component Possibly dementia - Patient has been declining over the past month CT of the head reviewed and negative for acute process Electrolytes and ammonia levels within normal limits No signs of infection Psychiatry consulted to evaluate for psychiatric anomalies and evaluation of competency. Seen by Sr Abhinav courtney inpatient psychiatric admission Palliative care consulted to assist with goals of care as patient is clearly no longer able to care for herself and lives alone at this time Case management consulted for assistance of possible placement Chronic pain - Holding patient's gabapentin and methadone as this may be contributing to her altered mental status Depression/anxiety - Holding home trazodone, Ativan. Psych ff COPD/hypertension - Continue home medication SUZY - Creatinine 1.53, baseline 0.9. Cr imprpved with IVF. Also encourage PO intake IV fluid hydration, encourage PO fluid intake, avoid nephrotoxins Monitor renal function FEN Heart healthy diet Electrolytes: Monitor and replete when necessary, s/p PO K, f/u BMP in am NS at 100 cc/hr Heparin Patient improved she is more awake and alert. Seen by psych recommends inpatient psych admission. Patient is DC to psych unit instable condition. Encourage PO fluid intake and monitor Kidney function. Off sedating meds at this time monitor for withdrawal symptoms. Pt Condition on Discharge: Stable Discharge Disposition: Disc to Psych Care Fac Discharge Time: > 30 minutes Discharge Instructions DIET: Follow Instructions for: Heart Healthy Diet Activities you can perform: Regular-No Restrictions Follow up Referrals: PCP Follow-up - 2-3 Days Continued Medications: Albuterol 18 GM Inh (Ventolin Hfa 18 GM Inh) 90 Mcg/Act Aer 2 PUFF INH Q4-6H PRN for SHORTNESS OF BREATH, #1 INHALER 0 Refills Escitalopram (Escitalopram) 20 Mg Tab 20 MG PO DAILY, #30 TAB 0 Refills Lisinopril-Hctz (Lisinopril-Hctz) 20-12.5 Mg Tab 1 TAB PO DAILY for Blood Pressure Management, #30 TAB 0 Refills Miroslava Kimball MD Sep 30, 2017 08:11
--- NOTE | 2017-09-30 08:52 | HHI.DCPOC ---
Discharge Care Plan Diagnosis: (1) Altered mental status (2) Dementia Your Health Problems Are: Anxiety Difficulty with ADL Additional Problems Confusion Goals to Promote Your Health * To prevent worsening of your condition and complications * To maintain your health at the optimal level Directions to Meet Your Goals Take your medications as prescribed Follow your dietary instruction Follow activity as directed Keep your appointments as scheduled Take your immunizations and boosters as scheduled If your symptoms worsen call your PCP, if no PCP go to Urgent Care Center or Emergency Room Smoking is Dangerous to Your Health. Avoid second hand smoke Call the 24-hour hour crisis hotline for domestic abuse at Marleni Gonzalez Sep 30, 2017 08:52
[2017-09-30] MEDS ORDERED: ESCITALOPRAM OXALATE 20 MG TAB PO SCH (09:00)
[2017-09-30] MEDS ORDERED: LISINOPRIL 20 MG TAB PO SCH (09:00)
[2017-09-30] MEDS ORDERED: HYDROCHLOROTHIAZIDE 12.5 MG CAP PO SCH (09:00)
[2017-09-30 09:17] VITALS: BP 108/57; PULSE 74; RESP 24; TEMP 97.2; O2SAT 94
[2017-09-30] MEDS: SODIUM CHLORIDE 0.9% FLUSH 10 ML FLUSH IV FLUSH SCH (09:36)
--- NOTE | 2017-09-30 10:39 | EKG ---
Date Performed: 09/29/2017 Time Performed: 17:35:01 PTAGE: 67 years EKG: SINUS TACHYCARDIA ABNORMAL RHYTHM ECG Nonspecific ST and T wave abnormalities Compared to PREVIOUS TRACING the patient is now tachycardic PREVIOUS TRACIN09/11/17 DOCTOR: Nat Martin Interpretating Date/Time 09/30/2017 10:38:03
[2017-09-30 11:45] LABS: AUTOMATED NEUTROPHIL # 8.4 TH/MM3 (1.8-7.7); BASOPHIL % 0.2 % (0.0-2.0); EOSINOPHIL # 0.1 TH/MM3 (0-0.4); EOSINOPHIL % 0.8 % (0.0-4.0); HEMATOCRIT 38.9 % (35.0-46.0); HEMOGLOBIN 12.8 GM/DL (11.6-15.3); LYMPH % 13.2 % (9.0-44.0); LYMPHOCYTE # 1.4 TH/MM3 (1.0-4.8); MEAN CELL VOLUME 87.3 FL (80.0-100.0); MEAN CORPUSCULAR HEMOGLOBIN 28.7 PG (27.0-34.0); MEAN CORPUSCULAR HGB CONC 32.9 % (32.0-36.0); MEAN PLATELET VOLUME 8.6 FL (7.0-11.0); MONO % 6.4 % (0.0-8.0); MONOCYTE # 0.7 TH/MM3 (0-0.9); NEUT % 79.4 % (16.0-70.0); PLATELET COUNT 247 TH/MM3 (150-450); RED BLOOD COUNT 4.45 MIL/MM3 (4.00-5.30); RED CELL DISTRIBUTION WIDTH 13.8 % (11.6-17.2); WHITE BLOOD COUNT 10.6 TH/MM3 (4.0-11.0)
[2017-09-30 12:13] LABS: BICARBONATE 28.2 MEQ/L (21.0-32.0); CREATININE 1.22 MG/DL (0.50-1.00)
[2017-10-01] MEDS ORDERED: METH10TA PO (13:58)
[2017-10-01] MEDS ORDERED: LEXA20TA PO (13:58)
== END 2017-09-30 11:23 ==
LOC: NEPE 17:15 → NEDA 20:04 → NEPGCP 21:12
PROVIDERS: ADMIT Hospitalist; ATTEND Hospitalist
DX: G93.40 Encephalopathy, unspecified (principal); T50.905S Adverse effect of unspecified drugs, medicaments and biological substances, sequela; N17.9 Acute kidney failure, unspecified; F03.90 Unspecified dementia, unspecified severity, without behavioral disturbance, psychotic disturbance, mood disturbance, and anxiety; F41.9 Anxiety disorder, unspecified; F32.9 Major depressive disorder, single episode, unspecified; J44.9 Chronic obstructive pulmonary disease, unspecified; I10 Essential (primary) hypertension; G89.29 Other chronic pain; M54.2 Cervicalgia; M54.9 Dorsalgia, unspecified; G62.9 Polyneuropathy, unspecified; Z51.5 Encounter for palliative care
CPT/HCPCS: 36600; 70450; 71045; 80048; 80053; 81001; 82140; 82805; 83605; 84443; 84484; 85025; 87040; 93005; 96360; 96372; 97163; 99285; G0378; G8987; G8988; J1644; J7030

== ENCOUNTER 2017-09-30 09:49 | Inpatient (IN) | payer OTHER, MEDICARE ==
[~2017-09-30] VITALS: Ht 162.6 cm; Wt 84.3 kg
[~2017-09-30 09:49] MED LIST changes: -LACTTAB8 PO; -MEDR4PAK PO; +METH10TA PO
[2017-09-30] MEDS ORDERED: HALOPERIDOL LACTATE 5 MG/ML AMP ONE (12:23)
[2017-09-30] MEDS ORDERED: ALUMINUM/MAGNESIUM/SIMETH 30 ML CUP PO PRN (12:45)
[2017-09-30] MEDS ORDERED: LORazepam 0.5 MG TAB PO PRN (12:45)
[2017-09-30] MEDS ORDERED: LORazepam 2 MG/ML VIAL IM PRN ×2 (12:45)
[2017-09-30] MEDS ORDERED: MAGNESIUM HYDROXIDE SUSP 30 ML CUP PO PRN (12:45)
[2017-09-30] MEDS ORDERED: LORazepam 1 MG TAB PO PRN (12:45)
[2017-09-30] MEDS ORDERED: ACETAMINOPHEN 325 MG TAB PO PRN (12:45)
--- NOTE | 2017-09-30 12:47 | HHI.HP ---
Provisional Diagnosis Admission Date Sep 30, 2017 at 11:25 [place] I. Unspecified psychosis vs dementia with behavioral disturbance [place] II. Deferred Certification of Person's Competence To Provide Express and Informed Consent I have personally examined Mary Dye , a person being served at [facility] on, Sep 30, 2017 12:38. Express and informed consent means consent voluntarily given in writing, by a competent person, after sufficient explanation and disclosure of the subject matter involved to enable the person to make a knowing and willful decision without any element of force, fraud, deceit, duress, or other form of constraint or coercion. This person is 18 years of age or older, is not now known to be incompetent to consent to treatment with a guardian advocate, and does not have a health care surrogate or proxy currently making medical treatment decisions. I have found this person to be one of the following: [] Competent to provide express and informed consent, as defined above, for voluntary admission to this facility and is competent to provide express and informed consent for treatment. He/she has the consistent capacity to make well reasoned, willful, and knowing decisions concerning his or her medical or mental health treatment. The person fully and consistently understands the purpose of the admission for examination/placement and is fully capable of personally exercising all rights assured under [place] Incompetent to provide express and informed consent to voluntary admission, and this is incompetent to provide express and informed consent to treatment. The person must be transferred to involuntary status and a petition for a guardian advocate filed with the Circuit Court. [x] Refusing to provide express and informed consent to voluntary admission but is competent to provide express and informed consent for treatment. The person must be discharged or transferred to involuntary status. Form shall be completed within 24 hours of a person's arrival at the receiving facility and filed in the clinical record of each person: 1. Admitted on a voluntary basis 2. Permitted to provide express and informed consent to his/her own treatment 3. Allowed to transfer from involuntary to voluntary status 4. Prior to permitting a person to consent to his or her own treatment after having been previously found incompetent to consent to treatment. History of Present Illness Capacity: Lacks Capacity HPI The patient is a 67-year-old woman, domiciled alone in [place], single, mother of 3 kids, supported by Social Security, past psychiatric history of depression, no previous psychiatric hospitalizations, suicide attempts, the patient is in Lexapro 20 mg, trazodone 150 mg scribed by PCP, with a past medical history significant for chronic back pain, hypertension, COPD, neuropathy, who presents to the emergency department for evaluation of altered mental status. The patient was brought to the emergency department by her 2 sons who are at bedside when she was seen by the emergency medicine physician. According to ER documentation the patient had become or confused for approximately the last 2 days and was found wandering around her neighbor's houses knocking on doors. This is significantly different from the patient's baseline. She has been having increased confusion for the past month. The sons are concerned that there may be a psychiatric component to the patient's behavior. Patient was initially placed under observation due to SUZY, Creatinine 1.53, baseline 0.9. But, other than that her labs are unremarkable. Brain CT is also unremarkable. Psychiatric evaluation today the patient is quite confused, but she is able to tell me that she is a [place], but was unable to tolerate the date. Patient does not remember the reason she is here. She reportedly states that she prefers not to think , "I am forgetting everything", she reports depressed mood, she states that has been very depressed "I am unable to take care of myself". She denies suicidal or homicidal ideation, she denies visual and auditory hallucinations. Patient refused to to cooperate with cognitive test became very irritable and angry. Denies the use of illegal drugs and alcohol. I could not get any clarification about the reason she is taking methadone 70 mg. Per conversation with nursing charge the patient has been disorganized, and also displaying paranoid behavior. Review of Systems Constitutional: COMPLAINS OF: Diaphoretic episodes Endocrine: DENIES: Abnorml menstrual pattern, Heat/cold intolerance, Polydipsia , Polyuria, Polyphagia Eyes: DENIES: Blurred vision, Diplopia, Eye inflammation, Eye pain, Vision loss , Photosensitivity, Double Vision Ears, nose, mouth, throat: DENIES: Tinnitus, Hearing loss, Vertigo, Nasal discharge, Oral lesions, Throat pain, Hoarseness, Ear Pain, Running Nose, Epistaxis, Sinus Pain, Toothache, Odynophagia Respiratory: DENIES: Apneas, Cough, Snoring, Wheezing, Hemoptysis, Sputum production, Shortness of breath Cardiovascular: DENIES: Chest pain, Palpitations, Syncope, Dyspnea on Exertion , PND, Lower Extremity Edema, Orthopnea, Claudication Gastrointestinal: DENIES: Abdominal pain, Black stools, Bloody stools, Constipation, Diarrhea, Nausea, Vomiting, Difficulty Swallowing, Anorexia Genitourinary: DENIES: Abnormal vaginal bleeding, Dysmenorrhea, Dyspareunia, Sexual dysfunction, Urinary frequency, Urinary incontinence, Urgency, Hematuria , Dysuria, Nocturia, Vaginal discharge Musculoskeletal: DENIES: Joint pain, Muscle aches, Stiffness, Joint Swelling, Back pain, Neck pain Integumentary: DENIES: Abnormal pigmentation, Pruritus, Rash, Nail changes, Breast masses, Breast skin changes, Nipple discharge Hematologic/lymphatic: DENIES: Bruising, Lymphadenopathy Immunologic/allergic: DENIES: Eczema, Urticaria Neurologic: DENIES: Abnormal gait, Headache, Localized weakness, Paresthesias, Seizures, Speech Problems, Tremor, Poor Balance Psychiatric: COMPLAINS OF: Confusion, Depression, Delusions Substance Abuse History Drugs/Alcohol past 12 months The patient denies any use of illegal drugs or alcohol Past Family Social History Coded Allergies: No Known Allergies (Verified Allergy, Unknown, 09/29/17) Active Scripts Albuterol 18 GM Inh (Ventolin Hfa 18 GM Inh) 90 Mcg/Act Aer, 2 PUFF INH Q4-6H Y for SHORTNESS OF BREATH, #1 INHALER 0 Refills Prov:Sylvia Whatley MD 09/11/17 Lorazepam (Ativan) 1 Mg Tab, 1 MG PO Q12H Y for MODERATE TO SEVERE ANXIETY, #30 TAB Prov:Rodríguez Solano MD 08/27/17 Reported Medications Methadone (Methadone) 10 Mg Tab, 70 MG PO DAILY, TAB 0 Refills 09/29/17 Gabapentin (Gabapentin) 300 Mg Cap, 300 MG PO TID, #90 CAP 0 Refills 08/24/17 Escitalopram (Escitalopram) 20 Mg Tab, 20 MG PO DAILY, #30 TAB 0 Refills 08/24/17 Lisinopril-Hctz (Lisinopril-Hctz) 20-12.5 Mg Tab, 1 TAB PO DAILY for Blood Pressure Management, #30 TAB 0 Refills 08/24/17 Trazodone (Trazodone) 150 Mg Tablet, 150 MG PO HS for Control Depression, #30 TAB 0 Refills 08/24/17 Discontinued Scripts Methylprednisolone Dosepak (Medrol Dosepak) 4 Mg Dspk, 4 MG PO DIRECTED, #1 DSPK 0 Refills Per Pharmacist direction Prov:Sylvia Whatley MD 09/11/17 Lactobacillus Acidophilus (Lactobacillus Acidophilus) 1 Billion Cell Tab, 1 TAB PO TIDAC for Nutritional Supplement, #30 TAB 0 Refills Prov:Rodríguez Solano MD 08/27/17 Current Medications Medications (Trade) Dose Ordered Sig/Josafat Route Start Time Stop Time Status Last Admin (Ativan) 1 mg Q6H PRN PO 09/30/17 12:45 UNV (Ativan Inj) 1 mg Q6H PRN IM 09/30/17 12:45 UNV (Ativan) 0.5 mg Q12H PRN PO 09/30/17 12:45 UNV (Ativan Inj) 0.5 mg Q12H PRN IM 09/30/17 12:45 UNV (Tylenol) 650 mg Q4H PRN PO 09/30/17 12:45 UNV (Milk Of Magnesia Liq) 30 ml DAILY PRN PO 09/30/17 12:45 UNV (Mag-Al Plus Susp Liq) 30 ml Q6H PRN PO 09/30/17 12:45 UNV (Habitrol 21 Mg Patch.24 Hr) 1 patch DAILY T-DERMAL 10/01/17 09:00 UNV (Lexapro) 20 mg DAILY PO 10/01/17 09:00 UNV (Neurontin) 300 mg TID PO 09/30/17 13:00 UNV (Dolophine) 70 mg DAILY PO 10/01/17 09:00 UNV Non-Formulary Medication 150 mg HS PO 09/30/17 21:00 UNV Family Psych History Patient denies past family psychiatric history the patient denies family psychiatric history Social History Patient was born and raised it was constant, she lives alone in [place], single, mother with 3 kids, supported by Social Security her highest level of education is high Patient's Strengths (min. 2) Verbal communication Physical Exam No tremors, no EPS, no psychomotor agitation or retardation, no gait disturbance Mental Status Examination Appearance: Appropriate Consciousness: Alert Orientation: Person, Place Motor Activity: Normal gait Speech: Unremarkable Language: Adequate Fund of Knowledge: Adequate Attention and Concentration: Adequate Memory: Impaired Mood: Angry, Sad Affect: Appropriate, Irritable Thought Process & Associations: Intact Thought Content: Bizarre thinking, Delusional Hallucination Type: None Delusion Type: None, Paranoid Suicidal Ideation: No Suicidal Plan: No Suicidal Intention: No Homicidal Ideation: No Homicidal Plan: No Homicidal Intention: No Insight: Poor Judgment: Poor Assessment & Plan Problem List: (1) Dementia ICD Codes: F03.90 - Unspecified dementia without behavioral disturbance Assessment & Plan: On psychiatric evaluation today the patient presents confused, with memory deficits, poor historian, unable to provide reliable information to complete the psychiatric assessment. In the ER the patient has been paranoid, at times agitated. Collateral information from her son was obtained, and he says that the patient has been declining and functionality in the last month, with progressive memory loss, inability to take care of herself. The patient also reports to be depressed, even though she does not elaborate about circumstances and nature of her emotions and feelings. Due to the severity of neuropsychiatric symptoms, also to the fact that the patient has been described as unable to take care of herself, she is currently a danger to herself and she needs psychiatric hospitalization for stabilization. I will start Seroquel 12.5 mg twice daily to help with psychosis. Will restart Lexapro 10 mg and Trazodone 150 mg at bedtime for depression and insomnia. Methadone 70 mg needs clarification in order to be restarted. Consult hospitalist for recommendation regarding medical medications and to expand workup for AMS. Assessment & Plan Estimated LOS: days Problem Qualifiers (1) Dementia: Jones La MD Sep 30, 2017 12:47
[2017-09-30] MEDS ORDERED: PILL SPLITTER OTHER PRN (14:00)
[2017-09-30] MEDS: GABAPENTIN 300 MG CAP PO SCH ×2 (14:00→18:00)
[2017-09-30 15:02] VITALS: BP 126/71; PULSE 92; RESP 18; TEMP 98.4; O2SAT 95
[2017-09-30 17:40] VITALS: BP 123/57; PULSE 80; RESP 16; TEMP 97.1; O2SAT 97
[2017-09-30] MEDS: traZODone HCL 100 MG TAB PO SCH (21:00)
[2017-10-01 06:26] VITALS: BP 143/70; PULSE 81; RESP 16; TEMP 97.9; O2SAT 96
[2017-10-01 08:28] LABS: BICARBONATE 24.4 MEQ/L (21.0-32.0); BLOOD UREA NITROGEN 14 MG/DL (7-18); CALCIUM 9.5 MG/DL (8.5-10.1); CHLORIDE 103 MEQ/L (98-107); CREATININE 1.12 MG/DL (0.50-1.00); GLOMERULAR FILTRATION RATE 48 ML/MIN (>89); GLUCOSE,RANDOM 99 MG/DL (74-106); SODIUM (NA) 138 MEQ/L (136-145)
[2017-10-01 08:29] LABS: CHOLESTEROL 162 MG/DL (120-200)
[2017-10-01] MEDS: ESCITALOPRAM OXALATE 20 MG TAB PO SCH (08:29)
[2017-10-01] MEDS: NICOTINE 21 MG/24 HR PATCH T-DERMAL SCH (08:29)
[2017-10-01] MEDS: GABAPENTIN 300 MG CAP PO SCH ×4 (08:29→19:49)
[2017-10-01] MEDS ORDERED: LORazepam 2 MG/ML VIAL IV PUSH PRN ×4 (08:30)
[2017-10-01] MEDS ORDERED: LORazepam 1 MG TAB PO PRN (08:30)
[2017-10-01] MEDS ORDERED: LORazepam 2 MG TAB PO PRN (08:30)
[2017-10-01] MEDS ORDERED: FLUMAZENIL 0.5 MG/5 ML VIAL IV PUSH PRN (08:30)
[2017-10-01 08:32] LABS: CHOLESTEROL/ HDL RATIO 3.43 RATIO; HDL CHOLESTEROL 47.1 MG/DL (40.0-60.0); LDL CHOLESTEROL 74 MG/DL (0-99); TRIGLYCERIDES 205 MG/DL (42-150)
[2017-10-01] MEDS ORDERED: METHADONE HCL 10 MG TAB PO SCH (09:00)
[2017-10-01] MEDS ORDERED: METHADONE HCL 10 MG TAB PO PRN ×2 (11:00→14:00)
[2017-10-01] MEDS ORDERED: hydrOXYzine HCL 50 MG TAB PO PRN (11:15)
--- NOTE | 2017-10-01 11:33 | HHI.PYPN ---
Subjective Remarks Patient initially admitted by Dr. Baer his H&P reviewed and agreed with. I have completed the initial psychiatric admitting templated orders and also review of med reconciliation. Patient seen by me today. I feel she does meet Hummel criteria I will do first opinion request second opinion. I feel she she has capacity cipher medication at this time. Patient somewhat calm somewhat confused deny the intensity and severity of the behaviors that led to this hospitalization. She does acknowledge being an methadone friend number of years related to her chronic pain throughout her cervical thoracic and lumbar spine. We'll restart methadone though it 10 mg every 6 hours when necessary instead of 7 times per day. Will ask for a neurology consult. Will also have the hospitalist consult was monitoring her renal function. Also being contact the patient's family to discuss further medication management Review of Systems Except as stated in HPI: all other systems reviewed are Neg Mental Status Examination Appearance: Appropriate Consciousness: Alert Orientation: Person, Place Motor Activity: Normal gait Speech: Unremarkable Language: Adequate Fund of Knowledge: Adequate Attention and Concentration: Adequate Memory: Impaired Mood: Angry, Sad Affect: Appropriate, Irritable Thought Process & Associations: Intact Thought Content: Bizarre thinking, Delusional Hallucination Type: None Delusion Type: None, Paranoid Suicidal Ideation: No Suicidal Plan: No Suicidal Intention: No Homicidal Ideation: No Homicidal Plan: No Homicidal Intention: No Insight: Poor Judgment: Poor Results Labs Test 10/01/17 07:03 Blood Urea Nitrogen 14 MG/DL Creatinine 1.12 MG/DL Random Glucose 99 MG/DL Calcium Level 9.5 MG/DL Sodium Level 138 MEQ/L Potassium Level 4.1 MEQ/L Chloride Level 103 MEQ/L Carbon Dioxide Level 24.4 MEQ/L Anion Gap 11 MEQ/L Estimat Glomerular Filtration Rate 48 ML/MIN Triglycerides Level 205 MG/DL Cholesterol Level 162 MG/DL LDL Cholesterol 74 MG/DL HDL Cholesterol 47.1 MG/DL Cholesterol/HDL Ratio 3.43 RATIO Vitals/IOs Vital Signs Date Time Temp Pulse Resp B/P (MAP) Pulse Ox O2 Delivery O2 Flow Rate FiO2 10/01/17 06:26 97.9 81 16 143/70 (94) 96 Intake and Output 10/01/17 10/01/17 10/02/17 08:00 16:00 00:00 Intake Total 240 ml Balance 240 ml Assessment & Plan Problem List: (1) Dementia ICD Codes: F03.90 - Unspecified dementia without behavioral disturbance Assessment & Plan Estimated LOS: days this I feel patient does meet Hummel criteria I'll do first opinion request second opinion I feel at this time he does have capacity sign for medication. Patient somewhat confused but appears to be compensating fairly well. Though there is little insight. Will be having neurology consult was. We have the hospitalist consult will less. Justification for Cont. Inpt. At this time patient would decompensated placed in the lower level of care Discharge Planning To be determined Request HC Surrog/Guard Advoc?: No Problem Qualifiers (1) Dementia: Qualified Codes: G30.1 - Alzheimer's disease with late onset; F02.81 - Dementia in other diseases classified elsewhere with behavioral disturbance Balwinder Gray MD Oct 01, 2017 11:32
--- NOTE | 2017-10-01 13:38 | PD.CONS ---
HPI Service [facility] Consult Requested By Reason for Consult Lower back pain Primary Care Physician Cade Bianchi D.O. Diagnoses: History of Present Illness 67-year-old female with past medical history significant for chronic back pain, hypertension, COPD, neuropathy and anxiety who presented to the emergency department on 09/29 with altered mental status. Patient was admitted to observation unit and subsequently discharged on 09/30 to inpatient psychiatry. Workup in observation unit with possible new onset of dementia. Neurology services consulted for evaluation while patient has been admitted to psychiatry department. [facility] consulted to assist with management of chronic lower back pain. Patient is seen and examined in the day room with nurse at bedside. She is alert and oriented x4, she answers questions appropriately and is following commands. She would like to know when she will be discharged back home as she has a cat at home who she cares for. She repots chronic back pain and tells me that she has had numerous back surgeries in the past. She ambulates with the assistance of a walker, but repots that she also uses a wheelchair at home from time to time. She denies any weakness, dysuria, incontinence of urine or stool, or saddle anesthesia. She denies any fevers, chills, nausea, vomiting, or diarrhea. She denies nay SOB, cough, or chest willis. Discussed with nurse who repots that medication list shows patient takes Methadone 70gm daily for chronic back pain. Review of Systems Except as stated in HPI: all other systems reviewed are Neg Past Family Social History Allergies: Coded Allergies: vilazodone (Verified Allergy, Unknown, 10/01/17) Past Medical History Chronic back pain Hypertension COPD Neuropathy Anxiety and depression Past Surgical History Reports multiple back surgeries Reported Medications Reported Meds & Active Scripts Active Ventolin Hfa 18 GM Inh (Albuterol Sulfate) 90 Mcg/Act Aer 2 Puff INH Q4-6H PRN Ativan (Lorazepam) 1 Mg Tab 1 Mg PO Q12H PRN Reported Methadone (Methadone HCl) 10 Mg Tab 35 Mg PO BID Lexapro (Escitalopram Oxalate) 20 Mg Tab 20 Mg PO DAILY Methadone (Methadone HCl) 10 Mg Tab 70 Mg PO DAILY Gabapentin 300 Mg Cap 300 Mg PO TID Escitalopram (Escitalopram Oxalate) 20 Mg Tab 20 Mg PO DAILY Lisinopril-Hctz 20-12.5 Mg Tab 1 Tab PO DAILY Trazodone (Trazodone HCl) 150 Mg Tablet 150 Mg PO HS Active Ordered Medications Current Medications Medications (Trade) Dose Ordered Sig/Josafat Route Start Time Stop Time Status Last Admin (Ativan) 0.5 mg Q12H PRN PO 09/30/17 12:45 (Ativan Inj) 0.5 mg Q12H PRN IM 09/30/17 12:45 09/30/17 14:54 (Tylenol) 650 mg Q4H PRN PO 09/30/17 12:45 (Milk Of Magnesia Liq) 30 ml DAILY PRN PO 09/30/17 12:45 (Mag-Al Plus Susp Liq) 30 ml Q6H PRN PO 09/30/17 12:45 (Habitrol 21 Mg Patch.24 Hr) 1 patch DAILY T-DERMAL 10/01/17 09:00 10/01/17 08:29 (Lexapro) 20 mg DAILY PO 10/01/17 09:00 10/01/17 08:29 (Neurontin) 300 mg TID PO 09/30/17 14:00 10/01/17 12:42 (Desyrel) 150 mg HS PO 09/30/17 21:00 (Pill Splitter) 1 ea UNSCH PRN OTHER 09/30/17 14:00 Miscellaneous Information 1 HS T-DERMAL 10/01/17 21:00 (Ativan) 1 mg Q4H PRN PO 10/01/17 08:30 (Ativan Inj) 1 mg Q4H PRN IV PUSH 10/01/17 08:30 (Ativan) 2 mg Q2H PRN PO 10/01/17 08:30 10/01/17 08:29 (Ativan Inj) 2 mg Q2H PRN IV PUSH 10/01/17 08:30 (Ativan Inj) 2 mg Q1H PRN IV PUSH 10/01/17 08:30 (Ativan Inj) 2 mg Q15M PRN IV PUSH 10/01/17 08:30 (Romazicon Inj) 0.2 mg Q1M PRN IV PUSH 10/01/17 08:30 (Benadryl) 50 mg HS PRN PO 10/01/17 21:00 (Atarax) 50 mg Q6H PRN PO 10/01/17 11:15 (Dolophine) 20 mg DAILY PO 10/02/17 09:00 Family History ? family history of dementia/Alzheimer's Social History Tobacco use: Many years ago Alcohol use and illicit drug use: Denies Physical Exam Vital Signs Vital Signs Date Time Temp Pulse Resp B/P (MAP) Pulse Ox O2 Delivery O2 Flow Rate FiO2 10/01/17 06:26 97.9 81 16 143/70 (94) 96 09/30/17 17:40 97.1 80 16 123/57 (79) 97 09/30/17 15:02 98.4 92 18 126/71 (89) 95 Physical Exam GENERAL: This is a well-nourished, well-developed patient, in no apparent distress. SKIN: Cool and dry. HEAD: Atraumatic. Normocephalic. EYES: Pupils equal round and reactive. No scleral icterus. No injection or drainage. ENT: Nose without bleeding, purulent drainage. Airway patent. NECK: Trachea midline. No JVD CARDIOVASCULAR: Regular rate and rhythm without murmurs, gallops, or rubs. RESPIRATORY: Clear to auscultation. Breath sounds equal bilaterally. No wheezes , rales, or rhonchi. GASTROINTESTINAL: Abdomen soft, non-tender, nondistended. No guarding. MUSCULOSKELETAL: Extremities without clubbing, cyanosis, or edema. No joint tenderness, effusion, or edema noted. NEUROLOGICAL: Awake and alert. Cranial nerves grossly intact. Motor and sensory grossly within normal limits. Five out of 5 muscle strength in all muscle groups. Normal speech. Laboratory Laboratory Tests Test 10/01/17 07:03 Blood Urea Nitrogen 14 Creatinine 1.12 Random Glucose 99 Calcium Level 9.5 Sodium Level 138 Potassium Level 4.1 Chloride Level 103 Carbon Dioxide Level 24.4 Anion Gap 11 Estimat Glomerular Filtration Rate 48 Triglycerides Level 205 Cholesterol Level 162 LDL Cholesterol 74 HDL Cholesterol 47.1 Cholesterol/HDL Ratio 3.43 Result Diagram: 10/01/17 0703 Assessment and Plan Assessment and Plan 67-year-old female with past medical history significant for chronic back pain, hypertension, COPD, neuropathy and anxiety who presented to the emergency department on 09/29 with altered mental status. Patient was admitted to observation unit and subsequently discharged on 09/30 to inpatient psychiatry. Workup in observation unit with possible new onset of dementia. Neurology services consulted for evaluation while patient has been admitted to psychiatry department. [facility] consulted to assist with management of chronic lower back pain. Altered mental status Possible new onset of dementia - CT of head done recently negative, electrolytes and ammonia WNL - Neurology consulted by primary, appreciate workup and recommendations Chronic back pain - Nurse reports patient on Methadone 70mg daily, currently on PRN Methadone 10mg Q6hrs, Discussed with , will increase Methadone to 20mg BID - Recent UA on 09/29 negative HTN, mildly elevated and fluctuating - Looks like patient was on HCTZ-lisinopril before - BP this am slightly elevated, will continue monitoring since her BP is fluctuating - Continue monitoring BP if still high consider starting Amlodipine SUZY -s/p IVF while in obs unit - Renal function continues to improve - Continue hold on ACEI, continue to encourage PO intake, monitor renal function periodically DVT prophylaxis-ambulation Discussed with nurse. Thank you for this consultation, will continue to follow along. Maira Bowie Oct 01, 2017 13:38
--- NOTE | 2017-10-01 13:43 | MB ---
cc: Yashira Turpin MD DATE OF CONSULT: REASON FOR CONSULTATION: Confusion. HISTORY OF PRESENT ILLNESS: This is a 67-year-old woman who has a history of chronic back pain, hypertension, COPD, neuropathy, anxiety and depression. Apparently, was in the ED on 09/29/2017 for evaluation of change in mental status. She was brought in by her sons. History is taken from the chart. She was found the last couple of days wandering around her neighbor's house, knocking on doors, confusion. She is currently in the psychiatric department now, transferred from the main portion of the hospital to the psychiatric department and she states that she just could not cope. MEDICATIONS: Current home medicines are methadone for pain 70 mg daily, gabapentin 300 mg three times a day, citalopram 20 mg daily, lisinopril/HCTZ daily, trazodone 150 mg at bedtime. ALLERGIES: NONE. FAMILY HISTORY: Noncontributory. SOCIAL HISTORY: Apparently lives alone. There is no alcohol, tobacco, or drugs. She was transferred to this part of the hospital on 09/30/2017. PHYSICAL EXAMINATION: VITAL SIGNS: Temperature is 97.9, pulse 81, respiratory rate 16, blood pressure 143/70. NECK: Supple. HEART: Regular. NEUROLOGIC: She is awake and alert. She knows she is in [facility]. She knows it is September, the 2017. She cannot state the governor. She was able to remember three objects. Could not spell "world" backwards or forwards. Was not able to tell me how many quarters in a dollar 25, she kept saying that is a trick question. Speech otherwise is fluent. Pupils are reactive. Motor medina no significant weakness in upper extremities. She has some mild weakness in the legs, some deconditioning. Ambulates with a rolling walker, slightly flexed forward, but no overt shuffling. LABORATORY DATA: Reviewed, protein 30 in her urine, trace leukocyte esterase, culture was not indicated. Chemistries showed a creatinine 1.12 with a GFR of 48, cholesterol 162, triglycerides 205, LDL 74, HDL 47.1. TSH 1.640. CBC is really unremarkable. She had a chest x-ray that showed basilar mild atelectasis, post-surgical changes. Head CT nothing acute. They also saw some fusion of her cervical spine. She did state she had some neck surgery. IMPRESSION: Likely dementia process. The patient does have some anxiety as well it seems. There is some question if she ran out of her methadone. It will be restarted by psychiatry until she gets to I believe 70 mg. Certainly can start her on some low dose Namenda 5 mg daily, increase by 5 mg every week until 10 mg b.i.d. dosing is achieved. I do not believe she would be a good candidate to go back home to live alone, either live with family or with her children. Will go ahead and get an EEG. She did not have a B12 level drawn, check that, as well as RPR and continue current recommendations as outlined. MD RORY Gonzalez/RANJEET , 01:19 PM , 01:42 PM
[2017-10-01] MEDS ORDERED: LEXA20TA PO (13:58)
[2017-10-01] MEDS ORDERED: METH10TA PO (13:58)
[2017-10-01] MEDS ORDERED: MEMANTINE HCL 5 MG TAB PO ONE (14:00)
[2017-10-01 16:11] LABS: HEMOGLOBIN A1C 5.5 % (4.3-6.0)
[2017-10-01 17:35] VITALS: BP 123/68; PULSE 75; RESP 18; TEMP 98.1; O2SAT 97
--- NOTE | 2017-10-01 20:16 | MG ---
cc: Renea Trejo MD REQUESTED BY: Yashira Turpin MD INDICATION: An EEG was obtained on this 67-year-old patient, awake and asleep, being evaluated for altered mental status. FINDINGS: This EEG is showing a lot of artifact. There is a lot of theta activity intermixed with some beta and some alpha rhythms. There are some delta rhythms, but the artifact leads to a lot of limitation on this recording. There are no paroxysmal discharges. Photic stimulation shows no change. INTERPRETATION: Abnormal electroencephalogram because of generalized slowing suggestive of a mild to moderate diffuse disturbance of cerebral function. No epileptiform features present. Renea Mohamud. MD Maya OFC/SB , 08:00 PM , 08:14 PM
[2017-10-01] MEDS ORDERED: diphenhydrAMINE HCL 50 MG CAP PO PRN (21:00)
[2017-10-01] MEDS ORDERED: REMOVE OLD NICODERM (NICOTINE) PATCH T-DERMAL SCH (21:00)
[2017-10-01] MEDS: traZODone HCL 100 MG TAB PO SCH (21:20)
[2017-10-02 06:27] VITALS: BP 132/60; PULSE 84; RESP 20; TEMP 97.2; O2SAT 96
[2017-10-02] MEDS: ESCITALOPRAM OXALATE 20 MG TAB PO SCH (08:50)
[2017-10-02] MEDS: NICOTINE 21 MG/24 HR PATCH T-DERMAL SCH (08:52)
[2017-10-02] MEDS ORDERED: METHADONE HCL 10 MG TAB PO SCH ×2 (09:00→21:00)
[2017-10-02] MEDS ORDERED: NICOTINE 21 MG/24 HR PATCH T-DERMAL SCH (09:00)
--- NOTE | 2017-10-02 10:51 | HHI.PYPN ---
Subjective Remarks Patient seen in day room with nurse Jayla, chart reviewed, patient compliant medications, patient discussed with nurse. It appears is been some discrepancy with the dosing of the methadone. I did discuss this with the hepatus . yesterday the her should be 20 mg methadone twice a day we will verify this continuing. Neurology consult also noted and reviewed and agreed with. Also noted is neurologist's recommendation patient does not go home to live independently but be with some type of director specialty or family. However patient today did wish to be discharge saying she will go home with her family we need to verify that. She does denies suicidality homicidality voices or visions. She does know it is September 28, 2017 that she is in [facility]. I did question of part of the urgency she has to go home is related to the decrease in the methadone dosage from a claimed 70 mg a day to 40 mg a day Review of Systems Except as stated in HPI: all other systems reviewed are Neg Mental Status Examination Appearance: Appropriate Consciousness: Alert Orientation: Person, Place Motor Activity: Normal gait Speech: Unremarkable Language: Adequate Fund of Knowledge: Adequate Attention and Concentration: Adequate Memory: Impaired Mood: Angry, Sad Affect: Appropriate, Irritable Thought Process & Associations: Intact Thought Content: Bizarre thinking, Delusional Hallucination Type: None Delusion Type: None, Paranoid Suicidal Ideation: No Suicidal Plan: No Suicidal Intention: No Homicidal Ideation: No Homicidal Plan: No Homicidal Intention: No Insight: Poor Judgment: Poor Results Labs Test 10/01/17 18:55 Vitamin B12 Level 295 PG/ML Rapid Plasma Reagin NON-REACTIVE Vitals/IOs Vital Signs Date Time Temp Pulse Resp B/P (MAP) Pulse Ox O2 Delivery O2 Flow Rate FiO2 10/02/17 06:27 97.2 84 20 132/60 (84) 96 Intake and Output 10/02/17 10/02/17 10/03/17 08:00 16:00 00:00 Intake Total 240 ml Balance 240 ml Assessment & Plan Problem List: (1) Dementia ICD Codes: F03.90 - Unspecified dementia without behavioral disturbance Assessment & Plan Estimated LOS: days patient showing some mild increased focus, wants to be discharged today she is somewhat confused and frustrated with the confusion related to her methadone dosing. Attempt to rectify that. The neurology consult suggest patient does not have the ability return home to independent living. Related to verify some of this with her son's Justification for Cont. Inpt. At this time patient decompensated placed in a lower level of care Discharge Planning Is needs to be verified with patient's family Request HC Surrog/Guard Advoc?: No Problem Qualifiers (1) Dementia: Qualified Codes: G30.1 - Alzheimer's disease with late onset; F02.81 - Dementia in other diseases classified elsewhere with behavioral disturbance Balwinder Gray MD Oct 02, 2017 10:51
[2017-10-02] MEDS ORDERED: METHADONE HCL 10 MG TAB PO ONE (11:00)
[2017-10-02] MEDS: GABAPENTIN 300 MG CAP PO SCH (12:28)
[2017-10-02] MEDS ORDERED: TRAZ1TAB14 PO (12:47)
[2017-10-02] MEDS ORDERED: ESCI20TA PO (12:47)
[2017-10-02] MEDS ORDERED: GABA300C5 PO (12:47)
--- NOTE | 2017-10-02 12:51 | HHI.DS ---
Psychiatry Discharge Summary Inpatient Psychiatric care?: Yes Advance Directive: No Reason Not Provided: Due to Patient Condition Mental Health AdvanceDirective: No Health Care Proxy: No Admission Admission Date Sep 30, 2017 at 11:25 Admission Diagnosis: (1) Dementia ICD Code: F03.90 - Unspecified dementia without behavioral disturbance Brief History The patient is a 67-year-old woman, domiciled alone in [place], single, mother of 3 kids, supported by Social Security, past psychiatric history of depression, no previous psychiatric hospitalizations, suicide attempts, the patient is in Lexapro 20 mg, trazodone 150 mg scribed by PCP, with a past medical history significant for chronic back pain, hypertension, COPD, neuropathy, who presents to the emergency department for evaluation of altered mental status. The patient was brought to the emergency department by her 2 sons who are at bedside when she was seen by the emergency medicine physician. According to ER documentation the patient had become or confused for approximately the last 2 days and was found wandering around her neighbor's houses knocking on doors. This is significantly different from the patient's baseline. She has been having increased confusion for the past month. The sons are concerned that there may be a psychiatric component to the patient's behavior. Patient was initially placed under observation due to SUZY, Creatinine 1.53, baseline 0.9. But, other than that her labs are unremarkable. Brain CT is also unremarkable. Psychiatric evaluation today the patient is quite confused, but she is able to tell me that she is a Industry, but was unable to tolerate the date. Patient does not remember the reason she is here. She reportedly states that she prefers not to think , "I am forgetting everything", she reports depressed mood, she states that has been very depressed "I am unable to take care of myself". She denies suicidal or homicidal ideation, she denies visual and auditory hallucinations. Patient refused to to cooperate with cognitive test became very irritable and angry. Denies the use of illegal drugs and alcohol. I could not get any clarification about the reason she is taking methadone 70 mg. Per conversation with nursing charge the patient has been disorganized, and also displaying paranoid behavior. Tobacco Use In Past 30 Days: No Tobacco Past 30 Days Alcohol Use: 2-4 Times Per Month Hospital Course Patient's hospital course was uneventful except for some adjustments in her methadone. This did not meet with the patient's approval. Patient is seen today with floor staff, patient now denying suicidality homicidality voices or visions. Her orientation seems somewhat improved she was aware of this being [facility] the [facility] 2017October 02. She says she wants to go home with her children will monitor her and help her get into an appropriate referral placement. Counselor has call patient sons they agreed to do the above. They do agree to monitor them mother and they will take responsibility for her. Thus patient was discharged today with Rx 1 month the been no Rx for benzodiazepines and methadone follow-up PCP Results Blood Pressure 132 / 60 Vital Signs Date Time Temp Pulse Resp B/P (MAP) Pulse Ox O2 Delivery O2 Flow Rate FiO2 10/02/17 06:27 97.2 84 20 132/60 (84) 96 Laboratory Tests Test 10/01/17 07:03 10/01/17 18:55 Creatinine 1.12 MG/DL (0.50-1.00) Estimat Glomerular Filtration Rate 48 ML/MIN (>89) Triglycerides Level 205 MG/DL (42-150) Laboratory Results Test 10/01/17 07:03 Cholesterol Level 162 MG/DL (120-200) HDL Cholesterol 47.1 MG/DL (40.0-60.0) Hemoglobin A1c 5.5 % (4.3-6.0) LDL Cholesterol 74 MG/DL (0-99) Triglycerides Level 205 MG/DL (42-150) Summary of Procedures None done Pending results at discharge: No Medications # of Antipsychotic meds at D/C: 0 Approp Antipsych med options 1 - Minimum of three failed multiple trials of monotherapy. 2 - Documented plan to taper to monotherapy due to previous use of multiple meds OR cross-taper in progress at D/C. 3 - Documentation of augmentation of Clozapine. 4 - Justification other than those listed in allowable values 1-3, document here : Discharge Discharge Date: Oct 02, 2017 Discharge Diagnosis: (1) Dementia Diagnosis: Principal ICD Code: F03.90 - Unspecified dementia without behavioral disturbance Pt Condition on Discharge: Stable Discharge Disposition: Discharge Home Discharge Instructions Diet Instructions: As Tolerated, No Restrictions Activities you can perform: Regular-No Restrictions Scheduled Appointment: PCP Dr Pedroza Discharge Time > 30 minutes Mental Status Examination Appearance: Appropriate Consciousness: Alert Orientation: Person, Place Motor Activity: Normal gait Speech: Unremarkable Language: Adequate Fund of Knowledge: Adequate Attention and Concentration: Adequate Memory: Impaired Mood: Angry, Sad Affect: Appropriate, Irritable Thought Process & Associations: Intact Thought Content: Bizarre thinking, Delusional Hallucination Type: None Delusion Type: None, Paranoid Suicidal Ideation: No Suicidal Plan: No Suicidal Intention: No Homicidal Ideation: No Homicidal Plan: No Homicidal Intention: No Insight: Poor Judgment: Poor Discharge/Advance Care Plan Health Problems: (1) Dementia Goals to promote your health * To prevent worsening of your condition and complications * To maintain your health at the optimal level Directions to meet your goals Take your medications as prescribed Follow your dietary instruction Follow activity as directed Keep your appointments as scheduled Take your immunizations and boosters as scheduled If your symptoms worsen call your PCP, if no PCP go to Urgent Care Center or Emergency Room For 04/02 questions related to your inpatient stay or results of tests pending at discharge, please contact Dr. Balwinder Gray at Smoking is Dangerous to Your Health. Avoid second hand smoking Problem Qualifiers (1) Dementia: Qualified Codes: G30.1 - Alzheimer's disease with late onset; F02.81 - Dementia in other diseases classified elsewhere with behavioral disturbance Balwinder Gray MD Oct 02, 2017 12:51
--- NOTE | 2017-10-02 13:03 | HHI.PYPN ---
Subjective Remarks Patient was seen today for evaluation of a second opinion. The patient reports feeling much better, denies depressive symptoms, denies anxiety, denies melanie and psychosis. She is oriented 3 at this moment. No agitation or aggressive behavior observed. She is compliant with her medications, no significant side effects reported. Mental Status Examination Appearance: Appropriate Consciousness: Alert Orientation: Person, Place Motor Activity: Normal gait Speech: Unremarkable Language: Adequate Fund of Knowledge: Adequate Attention and Concentration: Adequate Memory: Impaired Mood: Angry, Sad Affect: Appropriate, Irritable Thought Process & Associations: Intact Thought Content: Bizarre thinking, Delusional Hallucination Type: None Delusion Type: None, Paranoid Suicidal Ideation: No Suicidal Plan: No Suicidal Intention: No Homicidal Ideation: No Homicidal Plan: No Homicidal Intention: No Insight: Poor Judgment: Poor Results Labs Test 10/01/17 18:55 Vitamin B12 Level 295 PG/ML Rapid Plasma Reagin NON-REACTIVE Vitals/IOs Vital Signs Date Time Temp Pulse Resp B/P (MAP) Pulse Ox O2 Delivery O2 Flow Rate FiO2 10/02/17 06:27 97.2 84 20 132/60 (84) 96 Intake and Output 10/02/17 10/02/17 10/03/17 08:00 16:00 00:00 Intake Total 340 ml Balance 340 ml Assessment & Plan Problem List: (1) Dementia ICD Codes: F03.90 - Unspecified dementia without behavioral disturbance Assessment & Plan: I have seen and examined this patient for psychiatric evaluation of a second opinion, I have discussed the case with Dr. Gray, I agree and concur with his assessment and plan. Assessment & Plan Estimated LOS: days Justification for Cont. Inpt. Patient he is going to be discharged today. Request HC Surrog/Guard Advoc?: No Problem Qualifiers (1) Dementia: Qualified Codes: G30.1 - Alzheimer's disease with late onset; F02.81 - Dementia in other diseases classified elsewhere with behavioral disturbance Jones La MD Oct 02, 2017 13:03
--- NOTE | 2017-10-02 14:54 | PD.TTN ---
Patient Problems 1. Discharge planning 2. Medication compliance 3. Knowledge deficit 4. Lack of coping skills Progress Toward Goals Provider Present: Dr. Mary Gray Provider Input: 10/02/17 patient is doing much better but still very confused and neurology saw patient and suggested it may be onset of Dementia and she should not live alone Nurse(s) Input: 10/02/17 has been on Methadone in past but still issue with pharmacy today Psychiatric Counselors Present: Quyen Olson LCSW Psych Therapist Input: 10/02/17 patient is willing to go to a facility and talked with son about [facility] and they will assist with placement next week, she can return home with [facility] until then Group Spec/RT/OT/PARSON Present: EB Hammer Group Spec/RT/OT/PARSON Input: 10/02/17 has not attended any groups Quyen Olson LCSW Oct 02, 2017 14:54
--- NOTE | 2017-10-02 16:01 | HHI.PR ---
Subjective Remarks Follow-up visit for altered mental status, chronic pain, HTN, and AKA. Patient seen and examined today resting comfortably in bed. She complains of ongoing back pain. She denies any fevers, chills, nausea, vomiting, diarrhea or headaches. She denies any dysuria or hematuria. She voices no other acute concerns at the moment. Spoke with nurse who reports methadone was scheduled 20 mg to start tonight, requesting a one-time dose for now since patient has not received any methadone today. Objective Vitals Vital Signs Date Time Temp Pulse Resp B/P (MAP) Pulse Ox O2 Delivery O2 Flow Rate FiO2 10/02/17 06:27 97.2 84 20 132/60 (84) 96 10/01/17 17:35 98.1 75 18 123/68 (86) 97 I/O 10/01/17 10/01/17 10/01/17 10/02/17 10/02/17 10/02/17 06:59 14:59 22:59 06:59 14:59 22:59 Intake Total 720 ml 360 ml 240 ml 100 ml Balance 720 ml 360 ml 240 ml 100 ml Intake Oral 720 ml 360 ml 240 ml 100 ml # Voids 2 5 2 Result Diagram: 10/01/17 0703 Objective Remarks GENERAL: This is a well-nourished, well-developed patient, in no apparent distress. SKIN: Cool and dry. HEAD: Atraumatic. Normocephalic. EYES: Pupils equal round and reactive. No scleral icterus. No injection or drainage. ENT: Nose without bleeding, purulent drainage. Airway patent. NECK: Trachea midline. No JVD CARDIOVASCULAR: Regular rate and rhythm without murmurs, gallops, or rubs. RESPIRATORY: Clear to auscultation. Breath sounds equal bilaterally. No wheezes , rales, or rhonchi. GASTROINTESTINAL: Abdomen soft, non-tender, nondistended. No guarding. MUSCULOSKELETAL: Extremities without clubbing, cyanosis, or edema. No joint tenderness, effusion, or edema noted. NEUROLOGICAL: Awake and alert. Cranial nerves grossly intact. Motor and sensory grossly within normal limits. Five out of 5 muscle strength in all muscle groups. Normal speech. A/P Assessment and Plan 67-year-old female with past medical history significant for chronic back pain, hypertension, COPD, neuropathy and anxiety who presented to the emergency department on 09/29 with altered mental status. Patient was admitted to observation unit and subsequently discharged on 09/30 to inpatient psychiatry. Workup in observation unit with possible new onset of dementia. Neurology services consulted for evaluation while patient has been admitted to psychiatry department. [facility] consulted to assist with management of chronic lower back pain. Altered mental status Possible new onset of dementia - CT of head done recently negative, electrolytes and ammonia WNL - Neurology consulted by primary, appreciate workup and recommendations Chronic back pain - Nurse reports patient on Methadone 70mg daily, one-time dose of 20 mg methadone now, continue methadone 20 mg twice daily - Recent UA on 09/29 negative HTN, stable - Looks like patient was on HCTZ-lisinopril before -BP last night and this morning has been stable. - Continue monitoring BP if still high consider starting Amlodipine SUZY -s/p IVF while in obs unit - Renal function continues to improve - Continue hold on ACEI, continue to encourage PO intake, monitor renal function periodically DVT prophylaxis-ambulation Discussed with nurse and patient. Maira Bowie Oct 02, 2017 16:01
== END 2017-10-02 17:20 | disposition home or self-care (01) | DRG 884 ==
LOC: H250 11:25
PROVIDERS: ADMIT Psychiatry & Neurology Psychiatry; ATTEND Psychiatry & Neurology Psychiatry
DX: F03.90 Unspecified dementia, unspecified severity, without behavioral disturbance, psychotic disturbance, mood disturbance, and anxiety (principal); N17.9 Acute kidney failure, unspecified; J44.9 Chronic obstructive pulmonary disease, unspecified; I10 Essential (primary) hypertension; G89.29 Other chronic pain; M54.5 Low back pain; Z87.891 Personal history of nicotine dependence; G62.9 Polyneuropathy, unspecified; Z79.899 Other long term (current) drug therapy
CPT/HCPCS: 80048; 80061; 82607; 83036; 86592; 95819; J1630; J2060